=== PATIENT | male | born 1950 | race Caucasian/White ===

== ENCOUNTER → 2019-08-18 | Outpatient (CLI) | payer MEDICARE ==
[2019-08-18 13:56] LABS: Basophils # (A) 0.1 k/uL (0-0.2); Basophils % (A) 1 %; Eosinophils # (A) 0.1 k/uL (0-0.7); Eosinophils % (A) 1 %; HCT 52.6 % (39.0-53.0); HGB 17.5 gm/dL (13.0-17.5); Lymphocytes # (A) 1.9 k/uL (1.0-4.8); Lymphocytes % (A) 17 %; MCH 32.4 pg (25.0-35.0); MCHC 33.2 g/dL (31.0-37.0); MCV 97.5 fL (80.0-100.0); Mean Platelet Volume 7.4; Monocytes # (A) 0.7 k/uL (0-1.0); Monocytes % (A) 6 %; Neutrophils % (A) 73 %; Platelet Count 259 k/uL (150-450); RDW 12.8 % (11.5-15.5); WBC 11.1 k/uL (3.8-10.6)
--- NOTE | 2019-08-18 14:48 | XR ---
EXAMINATION TYPE: XR KUB DATE OF EXAM: 08/18/2019 COMPARISON: NONE HISTORY: Pain TECHNIQUE: Single supine KUB image of the abdomen is obtained FINDINGS: Small bowel demonstrates no evidence for dilatation or air fluid levels. Gas and fecal material is seen in non-distended colon. No convincing evidence for pneumoperitoneum. No unusual calcifications. The lung bases are clear. The osseous structures are intact. IMPRESSION: 1. Overall nonobstructive bowel gas pattern.
[2019-08-18 20:58] LABS: African American GFR (CKD) 102.1 (60.0-200.0); Albumin 3.9 g/dL (3.80-4.90); Albumin/Globulin Ratio 1.77 (1.60-3.17); Anion Gap 10.5 mmol/L (4.00-12.00); BUN/Creat Ratio 21.11 Ratio (12.00-20.00); Calcium 9.2 mg/dL (8.7-10.3); Carbon Dioxide 23.5 mmol/L (21.6-31.8); Globulin 2.2 g/dL (1.6-3.3); Non-African American GFR(CKD) 88.1 (60.0-200.0); Potassium 4.4 mmol/L (3.5-5.5); Total Bilirubin 0.5 mg/dL (0.2-1.2); Total Protein 6.1 g/dL (6.2-8.2)
[2019-08-18 21:53] LABS: Hemoglobin A1C 11.9 % (4.0-6.0)
== END | disposition home or self-care (01) ==
LOC: LABWHC1 12:49
PROVIDERS: ATTEND Internal Medicine
DX: R10.84 Generalized abdominal pain (principal); R53.83 Other fatigue; I10 Essential (primary) hypertension; N40.0 Benign prostatic hyperplasia without lower urinary tract symptoms; E11.9 Type 2 diabetes mellitus without complications; E78.5 Hyperlipidemia, unspecified
CPT/HCPCS: 36415; 74018; 80053; 82150; 82607; 83036; 83880; 84153; 85025

== ENCOUNTER → 2019-09-13 | Outpatient (CLI) | payer MEDICARE ==
[2019-09-13 07:40] LABS: African American GFR (CKD) >90 (>60 ml/min/1.73 sqM); Blood Urea Nitrogen 22 mg/dL (9-20); Non-African American GFR(CKD) >90 (>60 ml/min/1.73 sqM)
--- NOTE | 2019-09-13 09:44 | CT ---
EXAMINATION TYPE: CT abdomen pelvis w con DATE OF EXAM: 09/13/2019 COMPARISON: NONE HISTORY: 69-year-old male C6 1, Prostate Cancer TECHNIQUE: Contiguous axial scanning of the abdomen and pelvis following administration of 100 ml Iso mary lou 300 IV contrast. Delayed images through the kidneys and coronal/sagittal reconstructions perform ed. CT DLP: 1400 mGycm Automated exposure control for dose reduction was used. FINDINGS: Heart normal size without pericardial effusion. Mild aneurysm lower descending thoracic aorta at 3.4 cm. Aneurysm at the level of the diaphragmatic hiatus at 3.8 cm. Segmental fusiform aneurysms of the infrarenal abdominal aorta measuring up to 3.8 cm superiorly and 3.4 cm distally. Aneurysm right and left common iliac arteries measuring up to 2.1 cm. Some dependent atelectasis in the lower lungs. No pleural effusion. Volume loss at the right base secondary to right hemidiaphragmatic elevation. This is likely secondar y to mass effect from a very large right renal cyst measuring up to 14.9 cm. Right retrocrural lymph node enlarged at 1.3 cm. Diffuse retroperitoneal lymphadenopathy measuring up to 4.0 x 1.9 cm in the aortocaval region. Arron mass measuring 5.0 x 2.9 cm left periaortic. 1.7 cm right common iliac chain. 1.6 cm right external iliac chain. 1.8 cm left common iliac chain. 3.7 x 2.7 cm left external iliac chain. 1.7 cm right obturator chain lymph node. No focal liver lesion seen. Portal venous system appears patent. No biliary ductal dilatation. Puncta te pancreatic head calcifications suggesting sequela of prior pancreatitis. Clinically correlate. Gallbladder, right adrenal gland, and spleen appear within normal limits. Left renal hypodensities measuring up to 2.0 cm suggestive of benign cysts. Some are too small for ac curate CT characterization. Punctate 2 mm nonobstructive left renal calculus. Large 14.9 cm right renal cyst mentioned above causing mass effect on to the liver and volume loss at the right base. Additional smaller cortical lesions probably representing cysts. An 8 mm lesion post eriorly mid to lower pole right kidney too small for accurate CT characterization. This can be reasse ssed at follow-up given intermediate attenuation. No dilated small bowel, free fluid, or free air. Moderate stool burden. Normal appendix. Sigmoid diverticulosis. No pericolonic inflammatory change. Bladder is urine distended. Prostate gland measures 6.2 cm wide. There is irregular lobulated impress ion on the posterior bladder base. No abnormal fluid collection the pelvis. BONES: Mild degenerative change of the hips and left SI joint. Advanced degenerative disc disease L5-S1 and facet arthropathy lower lumbar spine. Sclerotic focus left inferior pelvic ramus. No osseous destructive process. IMPRESSION: 1. PROSTATOMEGALY AT 6.2 CM WIDE WITH HETEROGENEOUS ENHANCEMENT AND IRREGULAR LOBULATED IMPRESSION ON TO THE POSTERIOR BLADDER BASE IN KEEPING WITH PATIENT'S HISTORY OF PROSTATE CANCER. 2. METASTATIC DISEASE WITH DIFFUSE RETROPERITONEAL, BILATERAL ILIAC CHAIN, AND RIGHT OBTURATOR CHAIN LYMPHADENOPATHY. LARGEST ARRON MASS ALONG THE LEFT PERIAORTIC REGION MEASURES UP TO 5.0 X 2.9 CM. CAM NG THE LEFT EXTERNAL ILIAC CHAIN MEASURES 3.7 X 2.7 CM. RIGHT RETROCRURAL MEASURES 1.3 CM. 3. OSSEOUS METASTATIC DISEASE WITH A SCLEROTIC FOCUS OF THE LEFT INFERIOR PUBIC RAMUS. 4. LARGE 14.9 CM RIGHT RENAL CYST CAUSES MASS EFFECT ON TO THE LIVER AND VOLUME LOSS AT THE RIGHT BAS E. 5. A TOO SMALL TO CHARACTERIZE 8 MM LESION POSTERIOR RIGHT KIDNEY SHOULD BE REASSESSED AT FOLLOW-UP T O EXCLUDE AN EARLY SMALL SOLID MASS VERSUS COMPLICATED CYST. 6. AORTIC ANEURYSMS AND COMMON ILIAC ARTERY ANEURYSMS (AORTA MEASURING UP TO 3.8 CM AND COMMON ILIAC ARTERIES MEASURING UP TO 2.1 CM). 7. SIGMOID DIVERTICULOSIS.
--- NOTE | 2019-09-13 16:35 | XR ---
EXAMINATION TYPE: XR chest 2V DATE OF EXAM: 09/13/2019 COMPARISON: NONE HISTORY: Shortness of breath with activity. History of smoking and prostate cancer. TECHNIQUE: Frontal and lateral views of the chest are obtained. FINDINGS: There is no focal air space opacity, pleural effusion, or pneumothorax seen. The cardiac silhouette size is within normal limits. The osseous structures are intact. Calcific tendinitis of the right shoulder. IMPRESSION: No acute cardiopulmonary process.
--- NOTE | 2019-09-13 17:48 | NM ---
EXAMINATION TYPE: NM bone scan whole body DATE OF EXAM: 09/13/2019 COMPARISON: CT abdomen pelvis 09/13/2019 HISTORY: Prostate cancer Delayed whole-body scanning was performed following the injection of 24 mCi Tc 99m MDP. Images acqui red 4 hours post injection. FINDINGS: Abnormal focus of activity over the posterolateral left rib 7. Focus of abnormal activity over the le ft inferior pelvic ramus. Symmetric degenerative uptake of the bilateral shoulders. Periodontal disease. Focus of uptake overly ing the right hip joint is likely degenerative as there is no CT correlate. IMPRESSION: Findings likely represent metastatic prostate cancer of the left inferior pubic ramus and left business director olateral rib 7.
== END | disposition home or self-care (01) ==
LOC: RADCTMAIN 06:49
PROVIDERS: ATTEND Urology
DX: N40.0 Benign prostatic hyperplasia without lower urinary tract symptoms (principal); C61 Malignant neoplasm of prostate; Z85.46 Personal history of malignant neoplasm of prostate; R59.0 Localized enlarged lymph nodes; C79.51 Secondary malignant neoplasm of bone; N28.1 Cyst of kidney, acquired; I72.3 Aneurysm of iliac artery; K57.30 Diverticulosis of large intestine without perforation or abscess without bleeding; R16.0 Hepatomegaly, not elsewhere classified
CPT/HCPCS: 82565; 84520; 71046; 74177; 36415; 78306; A9503; Q9967

== ENCOUNTER 2020-01-10 07:04 | Day surgery (SDC) | payer MEDICARE, BC ==
[~2020-01-10 07:04] MED LIST: LACTATED RINGERS 1,000 ML IV SCH; LIDOCAINE 1% (10MG/ML) FOR IV START INTRADERMA PRN
[2020-01-10 07:26] VITALS: RESP 18; TEMP 97.7
[2020-01-10] MEDS ORDERED: LACTATED RINGERS 1,000 ML IV ONE (07:40)
[2020-01-10 07:41] LABS: Glucose,Whole Blood 117 mg/dL (75-99)
[2020-01-10] MEDS ORDERED: PROPOFOL 10 MG/ML 20 ML VIAL IV ONE (07:41)
--- NOTE | 2020-01-10 08:19 | P.PCN ---
Date of Procedure: 01/10/20 Description of Procedure: BRIEF HISTORY: Patient is a 69-year-old male presenting for outpatient colonoscopy for screening for malignant neoplasm of the colon. No prior colonoscopies reported. No change in bowel habits. No blood per rectum. The patient does report a family history of colon cancer in his mother. PROCEDURE PERFORMED: Colonoscopy with polypectomy. PREOPERATIVE DIAGNOSIS: Screening for malignant neoplasm of the colon, no prior colonoscopy, the patient does report family history of colon cancer in his mother. ESTIMATED BLOOD LOSS: Minimal. IV sedation per Anesthesia. PROCEDURE: After informed consent was obtained, the patient, was brought into the endoscopy unit. IV sedation was administered by Anesthesia under continuous monitoring. Digital rectal examination was normal. Initially the Olympus CF-190 flexible video colonoscope was then inserted in the rectum, gradually advanced into the cecum without any difficulty. Careful examination was performed as the scope was gradually being withdrawn. Ileocecal valve and the appendiceal orifice were visualized and appeared normal. Prep was excellent. Mucosa of the cecum, ascending colon, transverse colon, descending colon, sigmoid colon, and rectum appeared normal. A few scattered diverticula noted in the sigmoid colon. The patient had a flat 4 mm ascending colon polyp removed with cold forcep polypectomy. Sessile 4 mm transverse colon polyp removed with cold snare polypectomy. 2 sigmoid colon polyps measuring 7 and 6 mm in size removed with cold snare polypectomy. Retroflexion was performed in the rectum and no lesions were seen. The patient tolerated the procedure well. IMPRESSION: 3 polyps removed with cold snare polypectomy one from the transverse colon and 2 from the sigmoid colon. Flat ascending colon polyp removed with cold forcep polypectomy. Mild sigmoid diverticulosis. RECOMMENDATIONS: Findings of this examination were discussed with the patient and his family. Okay to resume diet. Okay to resume medications. Await pathology from polypectomy. Recommend repeat colonoscopy in 5 years for history of colon polyps and family history of colon cancer, pending pathology from polypectomy.
[2020-01-10 08:39] VITALS: BP 128/82; PULSE 62
== END 2020-01-10 09:17 | disposition home or self-care (01) ==
LOC: ORWHC2ENDO 07:04
PROVIDERS: ATTEND Internal Medicine
DX: Z12.11 Encounter for screening for malignant neoplasm of colon (principal); D12.3 Benign neoplasm of transverse colon; K63.5 Polyp of colon; K57.30 Diverticulosis of large intestine without perforation or abscess without bleeding; E11.9 Type 2 diabetes mellitus without complications; I10 Essential (primary) hypertension; E78.5 Hyperlipidemia, unspecified; G47.33 Obstructive sleep apnea (adult) (pediatric); C61 Malignant neoplasm of prostate; F17.210 Nicotine dependence, cigarettes, uncomplicated; Z80.0 Family history of malignant neoplasm of digestive organs; Z79.4 Long term (current) use of insulin; Z79.899 Other long term (current) drug therapy; Z98.890 Other specified postprocedural states
CPT/HCPCS: 88305; 45380; 45385; J2704

== ENCOUNTER → 2020-12-27 | Outpatient (CLI) | payer MEDICARE, BC ==
--- NOTE | 2020-12-28 08:08 | XR ---
EXAM TYPE: LUMBAR SPINE X RAY SERIES COMPARISON: NONE HISTORY: Weakness pain TECHNIQUE: 4 views are submitted. FINDINGS: Alignment is anatomic. The pedicles are intact. The transverse processes are intact. There is no s pondylolysis or spondylolisthesis. Mild diffuse osteopenia. Multilevel degenerative disc disease and facet arthropathy most marked at L5-S1. Vascular calcifications. IMPRESSION: 1. Multilevel degenerative disc disease and facet arthropathy most marked at L5-S1..
== END | disposition home or self-care (01) ==
LOC: RADXRMAIN 16:51
PROVIDERS: ATTEND Urology
DX: M51.37 Other intervertebral disc degeneration, lumbosacral region (principal); M46.97 Unspecified inflammatory spondylopathy, lumbosacral region
CPT/HCPCS: 72110

== ENCOUNTER 2022-01-22 10:38 | Inpatient (IN) | payer MEDICARE, BC ==
[2022-01-22] MEDS ORDERED: HYDROcodone/APAP 5-325MG 1 EACH TAB PO STA (12:30)
--- NOTE | 2022-01-22 13:00 | ED ---
General Adult HPI - General Chief complaint: Extremity Injury, Lower Stated complaint: rt foot pain Time Seen by Provider: 01/22/22 12:17 Source: patient, RN notes reviewed Mode of arrival: wheelchair Limitations: no limitations, physical limitation - History of Present Illness Initial comments: 71-year-old male presents emergency Department chief complaint of right foot fifth digit to pain. Patient states that he stubbed it of proximal one month ago. Patient is known diabetic with peripheral vascular disease. Patient is concerned about possible gangrene. Patient states that there is discomfort, swelling of the digit. Patient denies any drainage denies any other associated complaints. - Related Data Home Medications Medication Instructions Recorded Confirmed Atorvastatin [Lipitor] 10 mg PO QAM 01/06/20 01/06/20 Calcium Carbonate [Calcium] 600 mg PO DAILY 01/06/20 01/06/20 Enzalutamide [Xtandi] 160 mg PO DAILY 01/06/20 01/06/20 Fiber Powder 1 dose PO DAILY 01/06/20 01/06/20 Glimepiride [Amaryl] 1 mg PO BID 01/06/20 01/06/20 Glucos Sul 2Kcl/MSM/Chond/C/Mn 2 tab PO DAILY 01/06/20 01/06/20 [Glucosamine Chondroitin Cap] Insulin Detemir (Levemir) [Levemir] 20 unit SQ 1800 01/06/20 01/06/20 Multivitamins, Thera [Multivitamin 1 tab PO DAILY 01/06/20 01/06/20 (formulary)] [place]-3 Fatty Acids/Fish Oil [Fish 2 cap PO DAILY 01/06/20 01/06/20 Oil 1,000 mg Softgel] Turmeric Root Extract [Turmeric] 1 tab PO DAILY 01/06/20 01/06/20 lisinopriL [Zestril] 2.5 mg PO QAM 01/06/20 01/06/20 Allergies Allergy/AdvReac Type Severity Reaction Status Date / Time No Known Allergies Allergy Verified 01/22/22 10:56 Review of Systems ROS Statement: Those systems with pertinent positive or pertinent negative responses have been documented in the HPI. ROS Other: All systems not noted in ROS Statement are negative. Past Medical History Past Medical History: Diabetes Mellitus, Hyperlipidemia, Hypertension, Osteoarthritis (OA), Sleep Apnea/CPAP/BIPAP Additional Past Medical History / Comment(s): PROSTATE CANCER. CONCUSSION WITH WHEN HE WAS 9 YR HAD TWO HOLES DRILLED. History of Any Multi-Drug Resistant Organisms: None Reported Additional Past Surgical History / Comment(s): MINOR LACERATION Past Anesthesia/Blood Transfusion Reactions: Unable to Obtain Past Psychological History: No Psychological Hx Reported Smoking Status: Current every day smoker Past Alcohol Use History: None Reported Past Drug Use History: None Reported General Exam Limitations: no limitations General appearance: alert, in no apparent distress Head exam: Present: atraumatic, normocephalic, normal inspection Eye exam: Present: normal appearance, PERRL, EOMI. Absent: scleral icterus, conjunctival injection, periorbital swelling ENT exam: Present: mucous membranes moist Respiratory exam: Present: normal lung sounds bilaterally. Absent: respiratory distress, wheezes, rales, rhonchi, stridor Cardiovascular Exam: Present: regular rate, normal rhythm, normal heart sounds. Absent: systolic murmur, diastolic murmur, rubs, gallop, clicks Extremities exam: Present: other Neurological exam: Present: alert Skin exam: Present: warm (Right foot fifth digit there is some swelling of the distal portion under the nail, mild erythema tenderness with palpation neurovascular intact), dry, intact, normal color. Absent: rash Course Vital Signs 01/22/22 10:53 Temperature 97.7 F Pulse Rate 83 Respiratory 18 Rate Blood Pressure 113/73 O2 Sat by Pulse 94 L Oximetry Medical Decision Making - Medical Decision Making 71-year-old male presented from for toe pain. Patient has evidence of osteomyelitis. Patient was started on doing a bradycardia. Patient be admitted with consult to vascular surgery. Disposition Clinical Impression: Osteomyelitis of toe of right foot Disposition: ADMITTED IP TO THIS HOSP Condition: Fair Referrals: Izabella Matos MD [Primary Care Provider] - 1-2 days Time of Disposition: 13:48
--- NOTE | 2022-01-22 13:06 | XR ---
EXAMINATION TYPE: XR toes RT DATE OF EXAM: 01/22/2022 COMPARISON: NONE HISTORY: Focal pain and swelling fifth toe TECHNIQUE: 3 views right fifth toe. FINDINGS: Focal moderate soft tissue swelling fifth toe with irregular bony destruction of the distal 10-20% aspect of the fifth distal phalanx. Joint spaces are maintained. IMPRESSION: Radiographic findings suggest acute osteomyelitis distal fifth toe.
[2022-01-22] MEDS ORDERED: VANCOMYCIN IV PER PHARMACY 1 EACH MISC MISCELLANE PRN (13:20)
[2022-01-22] MEDS ORDERED: MORPHINE SULFATE 4 MG/ML SYRINGE IVP STA (13:46)
[2022-01-22] MEDS ORDERED: NICOTINE 21MG/24HR PATCH TRANSDERM STA (13:46)
[2022-01-22] MEDS ORDERED: ONDANSETRON 4 MG/2 ML VIAL IVP STA (13:46)
[2022-01-22] MEDS ORDERED: HYDROmorphone 0.5 MG/0.5 ML SYRINGE IVP PRN (13:48)
[2022-01-22] MEDS ORDERED: ONDANSETRON 4 MG/2 ML VIAL IVP PRN (13:48)
[2022-01-22] MEDS ORDERED: NALOXONE 0.4 MG/ML 1 ML VIAL IV PRN (13:48)
[2022-01-22] MEDS ORDERED: PIPERACILLIN-TAZOBACTAM 3.375 GM in SODIUM CHLORIDE 0.9% 100 ML IVPB ONE (14:00)
[2022-01-22 14:11] LABS: Basophils # (A) 0.1 k/uL (0-0.2); Basophils % (A) 1 %; Eosinophils # (A) 0.2 k/uL (0-0.7); Eosinophils % (A) 2 %; HCT 47.6 % (39.0-53.0); HGB 17.1 gm/dL (13.0-17.5); Lymphocytes # (A) 2.7 k/uL (1.0-4.8); Lymphocytes % (A) 25 %; MCHC 35.8 g/dL (31.0-37.0); MCV 92.2 fL (80.0-100.0); Monocytes # (A) 0.7 k/uL (0-1.0); Monocytes % (A) 6 %; Neutrophils # (A) 7.1 k/uL (1.3-7.7); Neutrophils % (A) 64 %; Platelet Count 180 k/uL (150-450); RBC 5.17 m/uL (4.30-5.90); RDW 12.5 % (11.5-15.5)
[2022-01-22 14:48] LABS: ALT 21 U/L (4-49); AST 30 U/L (17-59); African American GFR (CKD) >90 (>60 ml/min/1.73 sqM); Albumin 4.2 g/dL (3.5-5.0); Alkaline Phosphatase 66 U/L (38-126); Anion Gap 7 mmol/L; Blood Urea Nitrogen 25 mg/dL (9-20); C Reactive Protein <0.5 mg/dL (<1.0); Calcium 9.7 mg/dL (8.4-10.2); Carbon Dioxide 25 mmol/L (22-30); Chloride 108 mmol/L (98-107); Glucose 116 mg/dL (74-99); Non-African American GFR(CKD) >90 (>60 ml/min/1.73 sqM); Sodium 140 mmol/L (137-145); Total Bilirubin 0.5 mg/dL (0.2-1.3); Total Protein 6.7 g/dL (6.3-8.2)
[2022-01-22 14:51] LABS: Potassium 4.5 mmol/L (3.5-5.1)
[2022-01-22] MEDS ORDERED: VANCOMYCIN 2,000 MG in SODIUM CHLORIDE 0.9% 500 ML 500 ML IVPB ONE (15:00)
[2022-01-22 18:45] LABS: Glucose,Whole Blood 86 mg/dL (70-110)
[2022-01-22] MEDS ORDERED: DEXTROSE 50% SYRINGE 50 ML IVP PRN ×2 (19:10)
--- NOTE | 2022-01-22 19:13 | P.HPIM ---
History of Present Illness This is a pleasant 71 years old male with past medical history of diabetes mellitus, hypertension, hyperlipidemia, osteoarthritis, sleep apnea Presents because of pain and swelling of the right fifth toe of 4 day duration, he states the pain is significant and severe. He denies any other symptoms, no chest pain or dyspnea or abdominal pain or vomiting or diarrhea. No urinary complaints. No fever. He smokes 3 packs per day and he was counseled to quit and he agrees and he agrees to the nicotine patch. He denies alcohol, he denies current illicit drugs he states that he used to abuse drugs but that was many years before. Vitas looks stable He has mild leukocytosis of 11,000, rest of CBC, BMP and liver enzymes are unremarkable Right foot x-ray showing radiographic findings suggestive of acute osteomyelitis of the distal fifth toe Review of Systems Review of systems CONSTITUTIONAL: No fever, no malaise, no fatigue. HEENT: No recent visual problems or hearing problems. Denied any sore throat. CARDIOVASCULAR: No orthopnea, PND, no palpitations, no syncope. PULMONARY: No shortness of breath, no cough, no hemoptysis. GASTROINTESTINAL: No diarrhea, no nausea, no vomiting, no abdominal pain. Normoactive bowel sounds. NEUROLOGICAL: No headaches, no weakness, no numbness. HEMATOLOGICAL: Denies any bleeding or petechiae. GENITOURINARY: Denies any burning micturition, frequency, or urgency. -MUSCULOSKELETAL/RHEUMATOLOGICAL: Denies any joint pain, swelling, or any muscle pain. Except what is mentioned above ENDOCRINE: Denies any polyuria or polydipsia. Past Medical History Past Medical History: Diabetes Mellitus, Hyperlipidemia, Hypertension, Osteoarthritis (OA), Sleep Apnea/CPAP/BIPAP Additional Past Medical History / Comment(s): PROSTATE CANCER. CONCUSSION WITH WHEN HE WAS 9 YR HAD TWO HOLES DRILLED. History of Any Multi-Drug Resistant Organisms: None Reported Additional Past Surgical History / Comment(s): MINOR LACERATION Past Anesthesia/Blood Transfusion Reactions: Unable to Obtain Past Psychological History: No Psychological Hx Reported Smoking Status: Current every day smoker Past Alcohol Use History: None Reported Past Drug Use History: None Reported Medications and Allergies Home Medications Medication Instructions Recorded Confirmed Type Calcium Carbonate [Calcium] 600 mg PO DAILY@0600 01/06/20 01/22/22 History Enzalutamide [Xtandi] 160 mg PO DAILY@0600 01/06/20 01/22/22 History Glimepiride [Amaryl] 1 mg PO DAILY@0600 01/06/20 01/22/22 History Glucos Sul 2Kcl/MSM/Chond/C/Mn 2 tab PO DAILY@0600 01/06/20 01/22/22 History [Glucosamine Chondroitin Cap] Multivitamins, Thera [Multivitamin 1 tab PO DAILY@0600 01/06/20 01/22/22 History (formulary)] [place]-3 Fatty Acids/Fish Oil [Fish 2 cap PO DAILY@0600 01/06/20 01/22/22 History Oil 1,000 mg Softgel] Turmeric Root Extract [Turmeric] 500 mg PO DAILY@0600 01/06/20 01/22/22 History lisinopriL [Zestril] 2.5 mg PO DAILY@0600 01/06/20 01/22/22 History Atorvastatin Calcium [Lipitor] 40 mg PO DAILY@0600 01/22/22 01/22/22 History Insulin Glargine,Hum.rec.anlog 40 units SQ DAILY@1800 01/22/22 01/22/22 History [Lantus Solostar Pen] Allergies Allergy/AdvReac Type Severity Reaction Status Date / Time No Known Allergies Allergy Verified 01/22/22 14:30 Physical Exam Vitals: Vital Signs Temp Pulse Resp BP Pulse Ox 01/22/22 10:53 97.7 F 83 18 113/73 94 L Intake and Output 01/22/22 01/22/22 01/22/22 06:59 14:59 22:59 Other: Weight 99.79 kg GENERAL: The patient is alert and oriented x3, not in any acute distress. Well developed, well nourished. HEENT: Pupils are round and equally reacting to light. EOMI. No scleral icterus. No conjunctival pallor. Normocephalic, atraumatic. No pharyngeal erythema. No thyromegaly. CARDIOVASCULAR: S1 and S2 present. No murmurs, rubs, or gallops. PULMONARY: Chest is clear to auscultation, no wheezing or crackles. ABDOMEN: Soft, nontender, nondistended, normoactive bowel sounds. No palpable organomegaly. MUSCULOSKELETAL: No joint swelling or deformity. -EXTREMITIES: No cyanosis, clubbing, or pedal edema. Right fifth toe is swollen and tender and draped. NEUROLOGICAL: Gross neurological examination did not reveal any focal deficits. SKIN: No rashes. no petechiae Results CBC & Chem 7: 01/22/22 13:33 01/22/22 13:33 Labs: Abnormal Lab Results - Last 24 Hours (Table) 01/22/22 01/22/22 Range/Units 13:33 13:33 WBC 11.0 H (3.8-10.6) k/uL Chloride 108 H (98-107) mmol/L BUN 25 H (9-20) mg/dL Glucose 116 H (74-99) mg/dL Assessment and Plan Assessment: Right fifth toe osteomyelitis Nicotine dependence Hypertension Diabetes mellitus Hyperlipidemia Obesity with BMI of 31.6 History of osteoarthritis History of sleep apnea Plan: Vascular surgery consult Continue with antibiotic Check hemoglobin A1c Continue with insulin sliding scale Infectious disease consult Labs and medication were reviewed.. Continue same treatment. Continue with symptomatic treatment. Resume home medication. Monitor lytes and vitals. DVT and GI prophylaxis. Further recommendations as per clinical course of the patient DVT prophylaxis: Subcutaneous heparin GI Prophylaxis: Pepcid PT/OT: Pending Prognosis is guarded
[2022-01-22] MEDS ORDERED: PIPERACILLIN-TAZOBACTAM 3.375 GM in SODIUM CHLORIDE 0.9% 100 ML IVPB SCH (20:00)
[2022-01-22 20:47] LABS: Glucose,Whole Blood 155 mg/dL (70-110)
[2022-01-22] MEDS ORDERED: HEPARIN SODIUM,PORCINE/PF 5,000 UNIT/0.5 ML SYRINGE SQ SCH (21:00)
[2022-01-22] MEDS: FAMOTIDINE 20 MG/2 ML VIAL IV SCH (21:03)
[2022-01-22] MEDS: MORPHINE SULFATE 4 MG/ML SYRINGE IV PRN (21:03)
[2022-01-22] MEDS: CEFEPIME 2 GM in SODIUM CHLORIDE 0.9% 100 ML IVPB SCH (21:03)
[2022-01-22] MEDS: INSULIN ASPART (NovoLOG) 100 UNIT/ML VIAL SQ SCH (21:04)
[2022-01-23] MEDS: VANCOMYCIN 1,750 MG in SODIUM CHLORIDE 0.9% 500 ML 500 ML IVPB SCH ×2 (01:28→15:28)
[2022-01-23 06:05] LABS: Glucose,Whole Blood 130 mg/dL (70-110)
[2022-01-23] MEDS: INSULIN ASPART (NovoLOG) 100 UNIT/ML VIAL SQ SCH ×4 (06:06→21:27)
[2022-01-23] MEDS: CALCIUM CARBONATE 500 MG CHEWABLE PO SCH (06:10)
[2022-01-23] MEDS: GLIMEPIRIDE 1 MG TAB PO SCH (06:10)
[2022-01-23] MEDS: MORPHINE SULFATE 4 MG/ML SYRINGE IV PRN ×2 (06:10→15:36)
[2022-01-23] MEDS: ATORVASTATIN 40 MG TAB PO SCH (06:10)
[2022-01-23 06:56] LABS: Basophils # (A) 0.1 k/uL (0-0.2); Basophils % (A) 1 %; Eosinophils # (A) 0.2 k/uL (0-0.7); Eosinophils % (A) 2 %; HCT 43.3 % (39.0-53.0); Lymphocytes # (A) 2.5 k/uL (1.0-4.8); Lymphocytes % (A) 23 %; MCH 32.6 pg (25.0-35.0); MCHC 34.7 g/dL (31.0-37.0); MCV 93.9 fL (80.0-100.0); Mean Platelet Volume 7.9; Monocytes # (A) 0.8 k/uL (0-1.0); Monocytes % (A) 7 %; Neutrophils % (A) 65 %; Platelet Count 154 k/uL (150-450); RBC 4.61 m/uL (4.30-5.90); RDW 12.7 % (11.5-15.5); WBC 10.9 k/uL (3.8-10.6)
[2022-01-23 07:16] LABS: African American GFR (CKD) >90 (>60 ml/min/1.73 sqM); Anion Gap 4 mmol/L; Blood Urea Nitrogen 20 mg/dL (9-20); Calcium 8.1 mg/dL (8.4-10.2); Carbon Dioxide 25 mmol/L (22-30); Chloride 106 mmol/L (98-107); Glucose 119 mg/dL (74-99); Non-African American GFR(CKD) >90 (>60 ml/min/1.73 sqM); Potassium 4.2 mmol/L (3.5-5.1); Sodium 135 mmol/L (137-145)
--- NOTE | 2022-01-23 08:07 | P.GSCN ---
History of Present Illness History of present illness: 71-year-old diabetic male patient was seen in the office with history of right foot callus involving the right foot fifth toe patient had a CT of the abdomen which showed a SFA and infrapopliteal disease and also patient has a infrarenal abdominal aortic aneurysm less than 4 cm the right foot fifth toe has a callus on the plantar aspect nontender Neck is supple no bruit appreciated Chest is clear first and second sound normal some crackles at the lung bases Abdomen soft nontender Vascular femorals 1+ bilateral [place] has a right foot fifth toe callus Plan is we will use Santyl cream also patient has some peripheral vascular disease involving the right and left leg with the infrarenal abdominal aortic aneurysm advised to use Santyl daily patient wants to go home I will discuss with the internal medicine if he goes home for follow-up office continue with Santyl cream Past Medical History Past Medical History: Diabetes Mellitus, Hyperlipidemia, Hypertension, Osteoarthritis (OA), Sleep Apnea/CPAP/BIPAP Additional Past Medical History / Comment(s): PROSTATE CANCER. CONCUSSION WITH WHEN HE WAS 9 YR HAD TWO HOLES DRILLED. History of Any Multi-Drug Resistant Organisms: None Reported Additional Past Surgical History / Comment(s): MINOR LACERATION Past Anesthesia/Blood Transfusion Reactions: Unable to Obtain Past Psychological History: No Psychological Hx Reported Smoking Status: Current every day smoker Past Alcohol Use History: None Reported Past Drug Use History: None Reported Medications and Allergies Home Medications Medication Instructions Recorded Confirmed Type Calcium Carbonate [Calcium] 600 mg PO DAILY@0600 01/06/20 01/22/22 History Enzalutamide [Xtandi] 160 mg PO DAILY@0600 01/06/20 01/22/22 History Glimepiride [Amaryl] 1 mg PO DAILY@0600 01/06/20 01/22/22 History Glucos Sul 2Kcl/MSM/Chond/C/Mn 2 tab PO DAILY@0600 01/06/20 01/22/22 History [Glucosamine Chondroitin Cap] Multivitamins, Thera [Multivitamin 1 tab PO DAILY@0600 01/06/20 01/22/22 History (formulary)] [place]-3 Fatty Acids/Fish Oil [Fish 2 cap PO DAILY@0600 01/06/20 01/22/22 History Oil 1,000 mg Softgel] Turmeric Root Extract [Turmeric] 500 mg PO DAILY@0600 01/06/20 01/22/22 History lisinopriL [Zestril] 2.5 mg PO DAILY@0600 01/06/20 01/22/22 History Atorvastatin Calcium [Lipitor] 40 mg PO DAILY@0600 01/22/22 01/22/22 History Insulin Glargine,Hum.rec.anlog 40 units SQ DAILY@1800 01/22/22 01/22/22 History [Lantus Solostar Pen] Allergies Allergy/AdvReac Type Severity Reaction Status Date / Time No Known Allergies Allergy Verified 01/22/22 14:30 Surgical - Exam Vital Signs Temp Pulse Resp BP Pulse Ox 97.7 F 83 18 113/73 94 L 01/22/22 10:53 01/22/22 10:53 01/22/22 10:53 01/22/22 10:53 01/22/22 10:53 Results - Labs 01/23/22 06:42 01/23/22 06:42 Abnormal Lab Results - Last 24 Hours (Table) 01/22/22 01/22/22 01/22/22 Range/Units 13:33 13:33 20:45 WBC 11.0 H (3.8-10.6) k/uL Sodium (137-145) mmol/L Chloride 108 H (98-107) mmol/L BUN 25 H (9-20) mg/dL Glucose 116 H (74-99) mg/dL POC Glucose (mg/dL) 155 H (70-110) mg/dL Calcium (8.4-10.2) mg/dL 01/23/22 01/23/22 01/23/22 Range/Units 06:03 06:42 06:42 WBC 10.9 H (3.8-10.6) k/uL Sodium 135 L (137-145) mmol/L Chloride (98-107) mmol/L BUN (9-20) mg/dL Glucose 119 H (74-99) mg/dL POC Glucose (mg/dL) 130 H (70-110) mg/dL Calcium 8.1 L (8.4-10.2) mg/dL Diabetes panel 01/22/22 01/23/22 Range/Units 13:33 06:42 Sodium 140 135 L (137-145) mmol/L Potassium 4.5 4.2 (3.5-5.1) mmol/L Chloride 108 H 106 (98-107) mmol/L Carbon Dioxide 25 25 (22-30) mmol/L BUN 25 H 20 (9-20) mg/dL Creatinine 0.69 0.77 (0.66-1.25) mg/dL Glucose 116 H 119 H (74-99) mg/dL Calcium 9.7 8.1 L (8.4-10.2) mg/dL AST 30 (17-59) U/L ALT 21 (4-49) U/L Alkaline Phosphatase 66 (38-126) U/L Total Protein 6.7 (6.3-8.2) g/dL Albumin 4.2 (3.5-5.0) g/dL Calcium panel 01/22/22 01/23/22 Range/Units 13:33 06:42 Calcium 9.7 8.1 L (8.4-10.2) mg/dL Albumin 4.2 (3.5-5.0) g/dL Pituitary panel 01/22/22 01/23/22 Range/Units 13:33 06:42 Sodium 140 135 L (137-145) mmol/L Potassium 4.5 4.2 (3.5-5.1) mmol/L Chloride 108 H 106 (98-107) mmol/L Carbon Dioxide 25 25 (22-30) mmol/L BUN 25 H 20 (9-20) mg/dL Creatinine 0.69 0.77 (0.66-1.25) mg/dL Glucose 116 H 119 H (74-99) mg/dL Calcium 9.7 8.1 L (8.4-10.2) mg/dL Adrenal panel 01/22/22 01/23/22 Range/Units 13:33 06:42 Sodium 140 135 L (137-145) mmol/L Potassium 4.5 4.2 (3.5-5.1) mmol/L Chloride 108 H 106 (98-107) mmol/L Carbon Dioxide 25 25 (22-30) mmol/L BUN 25 H 20 (9-20) mg/dL Creatinine 0.69 0.77 (0.66-1.25) mg/dL Glucose 116 H 119 H (74-99) mg/dL Calcium 9.7 8.1 L (8.4-10.2) mg/dL Total Bilirubin 0.5 (0.2-1.3) mg/dL AST 30 (17-59) U/L ALT 21 (4-49) U/L Alkaline Phosphatase 66 (38-126) U/L Total Protein 6.7 (6.3-8.2) g/dL Albumin 4.2 (3.5-5.0) g/dL
[2022-01-23] MEDS: HEPARIN SODIUM,PORCINE/PF 5,000 UNIT/0.5 ML SYRINGE SQ SCH ×2 (09:01→15:28)
[2022-01-23] MEDS: COLLAGENASE 250 UNIT/GM OINTMENT 30 GM TUBE TOPICAL SCH (09:01)
[2022-01-23] MEDS: FAMOTIDINE 20 MG/2 ML VIAL IV SCH ×2 (09:02→21:26)
[2022-01-23] MEDS: CEFEPIME 2 GM in SODIUM CHLORIDE 0.9% 100 ML IVPB SCH ×2 (09:02→21:26)
[2022-01-23] MEDS: INSULIN DETEMIR (LEVEMIR) 100 UNIT/ML SYR SQ SCH (09:03)
[2022-01-23] MEDS: NICOTINE 21MG/24HR PATCH TRANSDERM SCH (09:04)
[2022-01-23] MEDS ORDERED: IPRATROPIUM-ALBUTEROL 3 ML NEB INHALATION PRN (11:42)
--- NOTE | 2022-01-23 11:42 | P.CNPUL ---
History of Present Illness Consult date: 01/23/22 Requesting physician: Jarrell Queen Reason for consult: hypoxemia Chief complaint: Right fifth toe pain History of present illness: This is a pleasant 71-year-old male patient with a known history of hyperlipidemia, hypertension, diabetes mellitus, obstructive sleep apnea, chronic and ongoing tobacco dependence of 50 years at 2-3 packs per day. He has not been seen by a renewal specialist in the past. He's not been told he has COPD. He's not on any inhalers at home. If he states he does have occasional cough in the a.m. with white productive phlegm. He is quite dyspneic on minimal exertio n. He had presented here to the emergency room yesterday with complaints of pain in his right fifth toe. He had bumped it about 1 month ago and since that time it is done bruising and now looking black. There is significant redness around the toe. X-ray findings are suggestive of acute osteomyelitis in the distal fifth toe. He's been initiated on vancomycin and cefepime. He was found to be hypoxemic with O2 saturation 86% on room air. We are consulted for the same. Chest x-ray does show evidence of COPD but no acute pulmonary process. He is sitting up at the bedside. Awake and alert in no acute distress. Maintaining better oxygen saturations in the 90s on 2 L/m per nasal cannula. Afebrile. Hemodynamically stable. Review of Systems REVIEW OF SYSTEMS: CONSTITUTIONAL: Denies any recent significant weight loss or weight gain. EYES: Denies change in vision. EARS, NOSE, MOUTH, THROAT: Denies headaches, denies sore throat. CARDIOVASCULAR: Denies chest pain, palpitations or syncopal episodes. RESPIRATORY: Positive for dyspnea on exertion, cough, congestion no hemoptysis. GASTROINTESTINAL: Denies change in appetite, denies abdominal pain GENITOURINARY: Denies hematuria, denies infections. MUSKULOSKELETAL: Positive for pain and swelling redness of the right fifth toe.. INTEGUMENTARY: Denies rash, denies eczema. NEUROLOGICAL: Denies recent memory loss, no recent seizure activity. PSYCHIATRIC: Denies anxiety, denies depression. HEMATOLOGIC/LYMPHATIC: Denies anemia, denies enlarged lymph nodes. Past Medical History Past Medical History: Diabetes Mellitus, Hyperlipidemia, Hypertension, Osteoarthritis (OA), Sleep Apnea/CPAP/BIPAP Additional Past Medical History / Comment(s): PROSTATE CANCER. CONCUSSION WITH WHEN HE WAS 9 YR HAD TWO HOLES DRILLED. History of Any Multi-Drug Resistant Organisms: None Reported Additional Past Surgical History / Comment(s): MINOR LACERATION Past Anesthesia/Blood Transfusion Reactions: Unable to Obtain Past Psychological History: No Psychological Hx Reported Smoking Status: Current every day smoker Past Alcohol Use History: None Reported Past Drug Use History: None Reported Medications and Allergies Home Medications Medication Instructions Recorded Confirmed Type Calcium Carbonate [Calcium] 600 mg PO DAILY@0600 01/06/20 01/22/22 History Enzalutamide [Xtandi] 160 mg PO DAILY@0600 01/06/20 01/22/22 History Glimepiride [Amaryl] 1 mg PO DAILY@0600 01/06/20 01/22/22 History Glucos Sul 2Kcl/MSM/Chond/C/Mn 2 tab PO DAILY@0600 01/06/20 01/22/22 History [Glucosamine Chondroitin Cap] Multivitamins, Thera [Multivitamin 1 tab PO DAILY@0600 01/06/20 01/22/22 History (formulary)] [place]-3 Fatty Acids/Fish Oil [Fish 2 cap PO DAILY@0600 01/06/20 01/22/22 History Oil 1,000 mg Softgel] Turmeric Root Extract [Turmeric] 500 mg PO DAILY@0600 01/06/20 01/22/22 History lisinopriL [Zestril] 2.5 mg PO DAILY@0600 01/06/20 01/22/22 History Atorvastatin Calcium [Lipitor] 40 mg PO DAILY@0600 01/22/22 01/22/22 History Insulin Glargine,Hum.rec.anlog 40 units SQ DAILY@1800 01/22/22 01/22/22 History [Lantus Solostar Pen] Allergies Allergy/AdvReac Type Severity Reaction Status Date / Time No Known Allergies Allergy Verified 01/22/22 14:30 Physical Exam Vitals: Vital Signs Temp Pulse Pulse Resp BP BP BP 01/23/22 09:38 20 01/23/22 08:00 98.3 F 85 18 110/49 01/23/22 01:49 99.1 F 92 17 130/74 01/22/22 20:18 98.2 F 72 18 146/87 11/29/22 19:43 01/22/22 19:26 83 18 100/62 Pulse Ox 01/23/22 09:38 93 L 01/23/22 08:00 86 L 01/23/22 01:49 90 L 01/22/22 20:18 96 01/22/22 19:43 93 L 01/22/22 19:26 90 L Intake and Output 01/22/22 01/23/22 01/23/22 22:59 06:59 14:59 Other: # Voids 2 Weight 99.79 kg GENERAL EXAM: Alert, pleasant 71-year-old male patient, on 2 L nasal cannula, comfortable in no apparent distress. HEAD: Normocephalic. EYES: Normal reaction of pupils, equal size. NOSE: Clear with pink turbinates. THROAT: No erythema or exudates. NECK: No masses, no JVD. CHEST: No chest wall deformity. LUNGS: Equal air entry with no crackles, wheeze, rhonchi or dullness. Diminished. CVS: S1 and S2 normal with no audible murmur, regular rhythm. ABDOMEN: No hepatosplenomegaly, normal bowel sounds, no guarding or rigidity. SPINE: No scoliosis or deformity SKIN: No rashes CENTRAL NERVOUS SYSTEM: No focal deficits, tone is normal in all 4 extremities. EXTREMITIES: There is ecchymosis and erythema of the right fifth toe. No clubbing, no cyanosis. Peripheral pulses are intact. Results - Laboratory Findings CBC and BMP: 01/23/22 06:42 01/23/22 06:42 Abnormal lab findings: Abnormal Labs 01/22/22 01/22/22 01/22/22 13:33 13:33 13:33 WBC 11.0 H Sodium Chloride 108 H BUN 25 H Glucose 116 H POC Glucose (mg/dL) Hemoglobin A1c 7.4 H Calcium 01/22/22 01/23/22 01/23/22 20:45 06:03 06:42 WBC 10.9 H Sodium Chloride BUN Glucose POC Glucose (mg/dL) 155 H 130 H Hemoglobin A1c Calcium 01/23/22 06:42 WBC Sodium 135 L Chloride BUN Glucose 119 H POC Glucose (mg/dL) Hemoglobin A1c Calcium 8.1 L - Diagnostic Findings Chest x-ray: image reviewed Assessment and Plan Assessment: Acute right foot fifth digit pain secondary to osteomyelitis secondary to previous injury approximately one month ago Acute hypoxemic respiratory failure secondary to suspected severe chronic obstructive pulmonary disease Chronic and ongoing tobacco dependence of 50 years at 2-3 packs per day Hypertension Hyperlipidemia Diabetes mellitus, insulin-dependent. Plan: The patient was seen and evaluated Chest x-ray, labs and medications reviewed Continue vancomycin and cefepime We'll add DuoNeb inhalations, Symbicort Heparin for DVT prophylaxis Educated regarding the importance of complete smoking cessation NicoDerm patch applied Would benefit from an outpatient workup in our office including full PFTs He would also benefit from an out patient low-dose computed tomography scan of the chest We will continue to follow and make further recommendations based on his clinica l status I have personally seen and examined the patient, performed the documentation and the assessment and plan as written. Number of minutes spent on the visit: 20.
--- NOTE | 2022-01-23 11:45 | XR ---
EXAMINATION TYPE: XR chest 1V portable DATE OF EXAM: 01/23/2022 CLINICAL HISTORY: Difficulty breathing . TECHNIQUE: Single AP portable upright view of the chest is obtained. COMPARISON: Chest x-ray from September 13, 2019 FINDINGS: Increased linear opacities bilateral lower lungs. No pleural effusion or pneumothorax seen . Cardiac silhouette size stable and within normal limits. Osseous structures are intact. IMPRESSION: Possible mild lower lung edema and/or developing infiltrates. Progress study advised.
[2022-01-23 12:09] LABS: Glucose,Whole Blood 149 mg/dL (70-110)
[2022-01-23] MEDS: IPRATROPIUM-ALBUTEROL 3 ML NEB INHALATION SCH ×2 (15:19→20:52)
[2022-01-23 18:14] LABS: Glucose,Whole Blood 78 mg/dL (70-110)
--- NOTE | 2022-01-23 19:52 | P.PN ---
Subjective This is a pleasant 71 years old male with past medical history of diabetes mellitus, hypertension, hyperlipidemia, osteoarthritis, sleep apnea Presents because of pain and swelling of the right fifth toe of 4 day duration, he states the pain is significant and severe. He denies any other symptoms, no chest pain or dyspnea or abdominal pain or vom iting or diarrhea. No urinary complaints. No fever. He smokes 3 packs per day and he was counseled to quit and he agrees and he agrees to the nicotine patch. He denies alcohol, he denies current illicit drugs he states that he used to abuse drugs but that was many years before. Vitas looks stable He has mild leukocytosis of 11,000, rest of CBC, BMP and liver enzymes are unremarkable Right foot x-ray showing radiographic findings suggestive of acute osteomyelitis of the distal fifth toe 01/23/2022 Patient still being treated for his right fifth toe osteomyelitis, his symptoms are located to this toe, he has some difficulty with limping and during walking but he walks by himself. Vascular surgery or the evaluated the patient, he is continued with conservative management currently ID team on the case and is covered with IV vancomycin and cefepime. This morning he was mildly hypoxic but with no respiratory distress, he is heavy smoker about 3 packs per day. Pulmonary team consulted who recommended a breathing treatment and follow-up outpatient for pulmonary function test and computed tomography scan of the chest. patient was found to be hypoxic at about 86% this morning, his oxygen level improved with 2 L oxygen via nasal cannula Chest x-ray showing possible mind lower lobe lung edema and/or development infiltrates. Progress study advised Wound culture obtained as well Review of systems CONSTITUTIONAL: No fever, no malaise, no fatigue. HEENT: No recent visual problems or hearing problems. Denied any sore throat. CARDIOVASCULAR: No orthopnea, PND, no palpitations, no syncope. GASTROINTESTINAL: No diarrhea, no nausea, no vomiting, no abdominal pain. Norm oactive bowel sounds. NEUROLOGICAL: No headaches, no weakness, no numbness. HEMATOLOGICAL: Denies any bleeding or petechiae. GENITOURINARY: Denies any burning micturition, frequency, or urgency. ENDOCRINE: Denies any polyuria or polydipsia. Active Medications Generic Name Dose Route Start Last Admin Trade Name Freq PRN Reason Stop Dose Admin Albuterol/Ipratropium 3 ml 01/23/22 11:42 Ipratropium-Albuterol 3 Ml Neb INHALATION RT-Q2H PRN Shortness Of Breath Or Wheezing Albuterol/Ipratropium 3 ml 01/23/22 12:00 01/23/22 15:19 Ipratropium-Albuterol 3 Ml Neb INHALATION Not Given RT-QID DAMARI Atorvastatin Calcium 40 mg 01/23/22 06:00 01/23/22 06:10 Atorvastatin 40 Mg Tab PO 40 mg DAILY@0600 DAMARI Administration Budesonide/Formoterol Fumarate 2 puff 01/23/22 20:00 Symbicort 160-4.5 Mcg Inhaler INHALATION RT-BID DAMARI Calcium Carbonate/Glycine 500 mg 01/23/22 06:00 01/23/22 06:10 Calcium Carbonate 500 Mg Chewable PO 500 mg DAILY@0600 DAMARI Administration Collagenase 1 applic 01/23/22 09:00 01/23/22 09:01 Collagenase 250 Unit/Gm Ointment 30 Gm Tube TOPICAL 1 applic DAILY DAMARI Administration Protocol Dextrose/Water 25 ml 01/22/22 19:10 Dextrose 50% Syringe 50 Ml IVP PER PROTOCOL PRN Hypoglycemia Protocol Dextrose/Water 50 ml 01/22/22 19:10 Dextrose 50% Syringe 50 Ml IVP PER PROTOCOL PRN Hypoglycemia Protocol Famotidine 20 mg 01/22/22 21:00 01/23/22 09:02 Famotidine 20 Mg/2 Ml Vial IV 20 mg Q12HR DAMARI Administration Glimepiride 1 mg 01/23/22 06:00 01/23/22 06:10 Glimepiride 1 Mg Tab PO 1 mg DAILY@0600 DAMARI Administration Heparin Sodium (Porcine) 5,000 unit 01/23/22 08:00 01/23/22 15:28 Heparin Sodium,Porcine/Pf 5,000 Unit/0.5 Ml Syringe SQ 5,000 unit Q8HR DAMARI Administration Hydromorphone HCl 0.5 mg 01/22/22 13:48 Hydromorphone 0.5 Mg/0.5 Ml Syringe IVP Q3HR PRN Moderate Pain (Scale 4 to 6) Vancomycin HCl 1,750 mg/ 500 mls @ 167 mls/hr 01/23/22 02:00 01/23/22 15:28 Sodium Chloride IVPB 167 mls/hr Q12H DAMARI Administration Cefepime HCl 2 gm/ Sodium 100 mls @ 25 mls/hr 01/22/22 21:00 01/23/22 09:02 Chloride IVPB 25 mls/hr Q12HR [facility] Administration Protocol Insulin Aspart 0 unit 01/22/22 21:00 01/23/22 18:40 Insulin Aspart (Novolog) 100 Unit/Ml Vial SQ Not Given ACHS [facility] Protocol Insulin Detemir 40 unit 01/23/22 07:00 01/23/22 09:03 Insulin Detemir (Levemir) 100 Unit/Ml Syr SQ 40 unit DAILY@0700 [facility] Administration Lisinopril 2.5 mg 01/23/22 06:00 01/23/22 06:10 Lisinopril 2.5 Mg Tab PO 2.5 mg DAILY@0600 [facility] Administration Miscellaneous Information 0 each 01/25/22 01:00 Vancomycin Trough Due 1 Each Misc MISCELLANE 01/25/22 01:01 DIRECTED ONE Morphine Sulfate 4 mg 01/22/22 13:48 01/23/22 15:36 Morphine Sulfate 4 Mg/Ml Syringe IV 4 mg Q4HR PRN Administration Severe Pain (Scale 7 to 10) Naloxone HCl 0.2 mg 01/22/22 13:48 Naloxone 0.4 Mg/Ml 1 Ml Vial IV Q2M PRN Opioid Reversal Nicotine 1 patch 01/23/22 09:00 01/23/22 09:04 Nicotine 21mg/24hr Patch TRANSDERM 1 patch DAILY [facility] Administration Enzalutamide [Xtandi 160 mg 01/23/22 06:00 01/23/22 05:32 ] 40 Mg Capsule PO Not Given DAILY@0600 [facility] Ondansetron HCl 4 mg 01/22/22 13:48 Ondansetron 4 Mg/2 Ml Vial IVP Q8HR PRN Nausea And Vomiting Objective - Vital Signs Vital signs: Vital Signs Temp 98.1 F 01/23/22 19:38 Pulse 69 01/23/22 19:38 Resp 16 01/23/22 19:38 BP 107/61 01/23/22 19:38 Pulse Ox 90 L 01/23/22 19:38 FiO2 Intake & Output 01/23/22 01/23/22 01/24/22 06:59 18:59 06:59 Intake Total 240 Balance 240 Intake: Oral 240 Other: # Voids 2 2 - Labs CBC & Chem 7: 01/23/22 06:42 11/30/22 06:42 Labs: Abnormal Lab Results - Last 24 Hours (Table) 01/22/22 01/22/22 01/23/22 Range/Units 13:33 20:45 06:03 WBC (3.8-10.6) k/uL Sodium (137-145) mmol/L Glucose (74-99) mg/dL POC Glucose (mg/dL) 155 H 130 H (70-110) mg/dL Hemoglobin A1c 7.4 H (0.0-6.0) % Calcium (8.4-10.2) mg/dL 01/23/22 01/23/22 01/23/22 Range/Units 06:42 06:42 11:55 WBC 10.9 H (3.8-10.6) k/uL Sodium 135 L (137-145) mmol/L Glucose 119 H (74-99) mg/dL POC Glucose (mg/dL) 149 H (70-110) mg/dL Hemoglobin A1c (0.0-6.0) % Calcium 8.1 L (8.4-10.2) mg/dL Microbiology - Last 24 Hours (Table) 01/23/22 13:10 Anaerobic Culture - Preliminary Foot - Right 01/23/22 13:10 Wound Culture - Preliminary Foot - Right 01/22/22 13:33 Blood Culture - Preliminary Blood No Growth after 24 hours 01/22/22 14:00 Blood Culture - Preliminary Blood No Growth after 24 hours Assessment and Plan Assessment: Right fifth toe osteomyelitis Nicotine dependence Possible mild acute COPD exacerbation Acute hypoxic respiratory failure Hypertension Diabetes mellitus Hyperlipidemia Obesity with BMI of 31.6 History of osteoarthritis History of sleep apnea Plan: Vascular surgery consult, continue with conservative management Continue with antibiotic Pulmonary team consult, continue with oxygen and breathing treatment. Patient will need outpatient follow-up with pulmonary service for PFT and CAT scan of the chest per recommend Continue with insulin sliding scale Infectious disease consult Labs and medication were reviewed.. Continue same treatment. Continue with symptomatic treatment. Resume home medication. Monitor lytes and vitals. DVT and GI prophylaxis. Further recommendations as per clinical course of the patient DVT prophylaxis: Subcutaneous heparin GI Prophylaxis: Pepcid PT/OT: Pending Prognosis is guarded
--- NOTE | 2022-01-23 20:05 | P.PN ---
Progress Note - Text 71-year-old gentleman right foot fifth toe callus formation with superficial ulcer x-ray shows osteo-mellitus of the fifth digit patient is an IV antibiotic and we been using Santyl cream which be continued changed the dressing daily with Santyl cream
[2022-01-23 20:24] LABS: Glucose,Whole Blood 169 mg/dL (70-110)
[2022-01-23] MEDS: SYMBICORT 160-4.5 MCG INHALER INHALATION SCH (20:52)
--- NOTE | 2022-01-23 22:42 | P.CONS ---
History of Present Illness - Reason for Consult Consult date: 01/23/22 Osteomyelitis Requesting physician: Jarrell E Sheet - Chief Complaint Right fifth toe pain swelling and drainage x few days - History of Present Illness Patient is a 71-year-old male with a past medical history taken for diabetes mellitus hypertension hyperlipidemia osteoarthritis presenting to ER for evaluation of the right fifth toe swelling and redness that has been getting worse for the last 4 days patient mention he did have some prominent initially about a month ago and apparently did have a history of trauma however the patient subsequently did have improvement in his symptomatology and started getting worse over the last 4 days patient describing the pain to be sharp 5-6 out of 10 no radiation patient on presentation to the hospital was afebrile and no fever has been recorded subsequently patient did have a white count of 11,000 kidney function has been normal blood cultures obtained which are currently pending patient did have x-ray of the toe radiographic findings suggest acute osteomyelitis distal fifth toe patient was started on cefepime and vancomycin infectious disease was consulted for further management of antibiotic therapy Review of Systems Positive point has been mentioned in the HPI rest of the systems are negative Past Medical History Past Medical History: Diabetes Mellitus, Hyperlipidemia, Hypertension, Osteoarthritis (OA), Sleep Apnea/CPAP/BIPAP Additional Past Medical History / Comment(s): PROSTATE CANCER. CONCUSSION WITH WHEN HE WAS 9 YR HAD TWO HOLES DRILLED. History of Any Multi-Drug Resistant Organisms: None Reported Additional Past Surgical History / Comment(s): MINOR LACERATION Past Anesthesia/Blood Transfusion Reactions: Unable to Obtain Past Psychological History: No Psychological Hx Reported Smoking Status: Current every day smoker Past Alcohol Use History: None Reported Past Drug Use History: None Reported Medications and Allergies Home Medications Medication Instructions Recorded Confirmed Type Calcium Carbonate [Calcium] 600 mg PO DAILY@0600 01/06/20 01/22/22 History Enzalutamide [Xtandi] 160 mg PO DAILY@0600 01/06/20 01/22/22 History Glimepiride [Amaryl] 1 mg PO DAILY@0600 01/06/20 01/22/22 History Glucos Sul 2Kcl/MSM/Chond/C/Mn 2 tab PO DAILY@0600 01/06/20 01/22/22 History [Glucosamine Chondroitin Cap] Multivitamins, Thera [Multivitamin 1 tab PO DAILY@0600 01/06/20 01/22/22 History (formulary)] [place]-3 Fatty Acids/Fish Oil [Fish 2 cap PO DAILY@0600 01/06/20 01/22/22 History Oil 1,000 mg Softgel] Turmeric Root Extract [Turmeric] 500 mg PO DAILY@0600 01/06/20 01/22/22 History lisinopriL [Zestril] 2.5 mg PO DAILY@0600 01/06/20 01/22/22 History Atorvastatin Calcium [Lipitor] 40 mg PO DAILY@0600 01/22/22 01/22/22 History Insulin Glargine,Hum.rec.anlog 40 units SQ DAILY@1800 01/22/22 01/22/22 History [Lantus Solostar Pen] cefTRIAXone [Rocephin] 2,000 mg IVP Q24HR #28 each 01/25/22 Rx Allergies Allergy/AdvReac Type Severity Reaction Status Date / Time No Known Allergies Allergy Verified 01/22/22 14:30 Physical Exam Vitals: Vital Signs Temp Pulse Pulse Resp BP BP BP 01/23/22 08:00 98.3 F 85 18 110/49 01/23/22 01:49 99.1 F 92 17 130/74 01/22/22 20:18 98.2 F 72 18 146/87 01/22/22 19:43 01/22/22 19:26 83 18 100/62 01/22/22 10:53 97.7 F 83 18 113/73 Pulse Ox 01/23/22 08:00 86 L 01/23/22 01:49 90 L 01/22/22 20:18 96 01/22/22 19:43 93 L 01/22/22 19:26 90 L 01/22/22 10:53 94 L Intake and Output 01/22/22 01/23/22 01/23/22 22:59 06:59 14:59 Other: # Voids 2 Weight 99.79 kg GENERAL DESCRIPTION: Anteriorly male lying in bed, no distress. No tachypnea or accessory muscle of respiration use. HEENT: Shows Pallor , no scleral icterus. Oral mucous membrane is dry. No pharyngeal erythema or thrush NECK: Trachea central, no thyromegaly. LUNGS: Unlabored breathing. Clear to auscultation anteriorly. No wheeze or crackle. HEART: S1, S2, regular rate and rhythm. No loud murmur ABDOMEN: Soft, no tenderness , guarding or rigidity, no organomegaly EXTREMITIES: Right fifth toe did have swelling redness and some drainage SKIN: No rash, no masses palpable. NEUROLOGICAL: The patient is awake, alert, oriented x3, mood and affect normal. Results CBC & Chem 7: 01/25/22 16:16 01/25/22 02:00 Labs: Abnormal Lab Results - Last 24 Hours (Table) 01/22/22 01/22/22 01/22/22 Range/Units 13:33 13:33 13:33 WBC 11.0 H (3.8-10.6) k/uL Sodium (137-145) mmol/L Chloride 108 H (98-107) mmol/L BUN 25 H (9-20) mg/dL Glucose 116 H (74-99) mg/dL POC Glucose (mg/dL) (70-110) mg/dL Hemoglobin A1c 7.4 H (0.0-6.0) % Calcium (8.4-10.2) mg/dL 01/22/22 01/23/22 01/23/22 Range/Units 20:45 06:03 06:42 WBC 10.9 H (3.8-10.6) k/uL Sodium (137-145) mmol/L Chloride (98-107) mmol/L BUN (9-20) mg/dL Glucose (74-99) mg/dL POC Glucose (mg/dL) 155 H 130 H (70-110) mg/dL Hemoglobin A1c (0.0-6.0) % Calcium (8.4-10.2) mg/dL 01/23/22 Range/Units 06:42 WBC (3.8-10.6) k/uL Sodium 135 L (137-145) mmol/L Chloride (98-107) mmol/L BUN (9-20) mg/dL Glucose 119 H (74-99) mg/dL POC Glucose (mg/dL) (70-110) mg/dL Hemoglobin A1c (0.0-6.0) % Calcium 8.1 L (8.4-10.2) mg/dL Assessment and Plan (1) Osteomyelitis of toe of right foot Current Visit: Yes Status: Acute Code(s): M86.9 - OSTEOMYELITIS, UNSPECIFIED SNOMED Code(s): 685514909 Plan: 1patient with right fifth toe diabetic foot infection apparently started with a trauma about a month ago now with evidence of osteomyelitis on the basis of the plain x-rays in this patient with no fever did have mild elevated white count with a question of abnormality seen on the x-ray related to possible trauma versus infection x-rays will be reviewed with radiologist. 2local wound culture to guide further antibiotic therapy 3we will check a CRP and procalcitonin sed rate 4continue cefepime and Vanco while waiting for the culture to finalize We will follow on clinical condition and cultures to further adjust medication if needed Thank you for this consultation will follow this patient along with you Time with Patient: Greater than 30
[2022-01-24] MEDS: HEPARIN SODIUM,PORCINE/PF 5,000 UNIT/0.5 ML SYRINGE SQ SCH ×4 (01:59→20:37)
[2022-01-24] MEDS: VANCOMYCIN 1,750 MG in SODIUM CHLORIDE 0.9% 500 ML 500 ML IVPB SCH ×2 (02:43→15:41)
[2022-01-24 05:25] LABS: ALT 17 U/L (4-49); AST 23 U/L (17-59); African American GFR (CKD) >90 (>60 ml/min/1.73 sqM); Albumin 3.6 g/dL (3.5-5.0); Albumin/Globulin Ratio 1.8; Alkaline Phosphatase 59 U/L (38-126); Anion Gap 2 mmol/L; Blood Urea Nitrogen 17 mg/dL (9-20); Calcium 8.4 mg/dL (8.4-10.2); Carbon Dioxide 26 mmol/L (22-30); Chloride 108 mmol/L (98-107); Glucose 163 mg/dL (74-99); Non-African American GFR(CKD) >90 (>60 ml/min/1.73 sqM); Potassium 4.2 mmol/L (3.5-5.1); Sodium 136 mmol/L (137-145); Total Bilirubin 0.6 mg/dL (0.2-1.3); Total Protein 5.6 g/dL (6.3-8.2)
[2022-01-24 06:25] LABS: Glucose,Whole Blood 132 mg/dL (70-110)
[2022-01-24] MEDS: INSULIN ASPART (NovoLOG) 100 UNIT/ML VIAL SQ SCH ×4 (06:28→20:36)
[2022-01-24] MEDS: ATORVASTATIN 40 MG TAB PO SCH (06:41)
[2022-01-24] MEDS: GLIMEPIRIDE 1 MG TAB PO SCH (06:41)
[2022-01-24] MEDS: CALCIUM CARBONATE 500 MG CHEWABLE PO SCH (06:41)
[2022-01-24] MEDS: INSULIN DETEMIR (LEVEMIR) 100 UNIT/ML SYR SQ SCH (06:41)
[2022-01-24] MEDS: SYMBICORT 160-4.5 MCG INHALER INHALATION SCH ×2 (08:07→20:01)
[2022-01-24] MEDS: IPRATROPIUM-ALBUTEROL 3 ML NEB INHALATION SCH ×4 (08:08→20:01)
[2022-01-24 09:29] LABS: Basophils # (A) 0.07 X 10*3/uL (0.00-0.10); Basophils % (A) 0.7 %; Eosinophils # (A) 0.18 X 10*3/uL (0.04-0.35); Eosinophils % (A) 1.9 %; HCT 42.8 % (39.6-50.0); HGB 14.8 g/dL (13.0-17.0); Immature Grans, Automated 0.4 %; Lymphocytes # (A) 2.35 X 10*3/uL (0.90-5.00); Lymphocytes % (A) 24.6 %; MCHC 34.6 g/dL (32.0-37.0); MCV 92.6 fL (80.0-97.0); Mean Platelet Volume 10.3 fL (9.5-12.2); Monocytes # (A) 1.14 X 10*3/uL (0.20-1.00); Monocytes % (A) 11.9 %; NRBC Per 100 WBC 0 /100 WBCS (0.0-0.0); Neutrophils # (A) 5.76 X 10*3/uL (1.80-7.70); Neutrophils % (A) 60.5 %; Platelet Count 153 X 10*3/uL (140-440); RBC 4.62 X 10*6/uL (4.40-5.60); RDW 13.2 % (11.5-14.5); WBC 9.54 X 10*3/uL (4.50-10.00)
--- NOTE | 2022-01-24 09:53 | P.PN ---
Subjective Progress Note Date: 01/24/22 This is a pleasant 71-year-old male patient with a known history of hyperlipidemia, hypertension, diabetes mellitus, obstructive sleep apnea, chronic and ongoing tobacco dependence of 50 years at 2-3 packs per day. 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 He's not been told he has COPD. He's not on any inhalers at home. If he states he does have occasional cough in the a.m. with white productive phlegm. He is quite dyspneic on minimal exertion. He had presented here to the emergency room yesterday with complaints of pain in his right fifth toe. He had bumped it about 1 month ago and since that time it is done bruising and now looking black. There is significant redness around the toe. X-ray findings are suggestive of acute osteomyelitis in the distal fifth toe. He's been initiated on vancomycin and cefepime. He was found to be hypoxemic with O2 saturation 86% on room air. We are consulted for the same. Chest x-ray does show evidence of COPD but no acute pulmonary pro cess. He is sitting up at the bedside. Awake and alert in no acute distress. Maintaining better oxygen saturations in the 90s on 2 L/m per nasal cannula. Afebrile. Hemodynamically stable The patient is seen today 01/24/2022 in follow-up on the regular medical floor. He is currently sitting up in bed. Awake and alert in no acute distress. Maintaining good O2 saturations in the 90s on room air. He's been afebrile. Hemodynamically stable. Right foot wound cultures are pending. Blood culture revealing no growth. White count 9.5. Hemoglobin 14.8. Sodium 136. Potassium 4.2. BUN 17. Creatinine 0.71. Glucose 132. He's been initiated on DuoNeb inhalations, Symbicort. He is on antibiotics in the form of cefepime and vancomycin. NicoDerm patch in place. Heparin for DVT prophylaxis. Objective - Vital Signs Vital signs: Vital Signs Temp 98.4 F 01/24/22 08:00 Pulse 104 H 01/24/22 09:00 Resp 18 01/24/22 08:00 BP 135/78 01/24/22 09:00 Pulse Ox 92 L 01/24/22 08:00 FiO2 Intake & Output 01/23/22 01/24/22 01/24/22 18:59 06:59 18:59 Intake Total 240 Balance 240 Intake: Oral 240 Other: # Voids 2 2 - Exam GENERAL EXAM: Alert, 71-year-old male patient, on room air, comfortable in no apparent distress. HEAD: Normocephalic. EYES: Normal reaction of pupils, equal size. NOSE: Clear with pink turbinates. THROAT: No erythema or exudates. NECK: No masses, no JVD. CHEST: No chest wall deformity. LUNGS: Equal air entry with no crackles, wheeze, rhonchi or dullness. Diminished. CVS: S1 and S2 normal with no audible murmur, regular rhythm. ABDOMEN: No hepatosplenomegaly, normal bowel sounds, no guarding or rigidity. SPINE: No scoliosis or deformity SKIN: No rashes CENTRAL NERVOUS SYSTEM: No focal deficits, tone is normal in all 4 extremities. EXTREMITIES: There is ecchymosis and erythema of the right fifth toe. No clubbing, no cyanosis. Peripheral pulses are intact. - Labs CBC & Chem 7: 01/24/22 04:20 01/24/22 04:20 Labs: Abnormal Lab Results - Last 24 Hours (Table) 01/23/22 01/23/22 01/24/22 Range/Units 11:55 20:17 04:20 Monocytes # (0.20-1.00) X 10*3/uL Sodium 136 L (137-145) mmol/L Chloride 108 H (98-107) mmol/L Glucose 163 H (74-99) mg/dL POC Glucose (mg/dL) 149 H 169 H (70-110) mg/dL Total Protein 5.6 L (6.3-8.2) g/dL 01/24/22 01/24/22 Range/Units 04:20 06:11 Monocytes # 1.14 H (0.20-1.00) X 10*3/uL Sodium (137-145) mmol/L Chloride (98-107) mmol/L Glucose (74-99) mg/dL POC Glucose (mg/dL) 132 H (70-110) mg/dL Total Protein (6.3-8.2) g/dL Microbiology - Last 24 Hours (Table) 01/23/22 13:10 Gram Stain - Preliminary Foot - Right Wound Culture - Preliminary 01/23/22 13:10 Anaerobic Culture - Preliminary Foot - Right 01/22/22 13:33 Blood Culture - Preliminary Blood No Growth after 24 hours 01/22/22 14:00 Blood Culture - Preliminary Blood No Growth after 24 hours Assessment and Plan Assessment: Acute right foot fifth digit pain secondary to osteomyelitis secondary to previous injury approximately one month ago currently on vancomycin and cefepime Acute hypoxemic respiratory failure secondary to suspected severe chronic obstructive pulmonary disease, recovered and on room air Chronic and ongoing tobacco dependence of 50 years at 2-3 packs per day Hypertension Hyperlipidemia Diabetes mellitus, insulin-dependent. Plan: The patient was seen and evaluated Labs and medications reviewed Continue vancomycin and cefepime Continue DuoNeb inhalations, Symbicort Educated regarding the importance of medication compliance for his suspected COPD Educated regarding the importance of complete smoking cessation Would benefit from an outpatient workup in our office including full PFTs He would also benefit from an out patient low-dose computed tomography scan of the chest We will continue to follow I have personally seen and examined the patient, performed the documentation and the assessment and plan as written. Number of minutes spent on the visit: 10.
[2022-01-24 10:29] LABS: Erythrocyte Sedimentation Rate 11 mm/Hr (0-20)
[2022-01-24] MEDS: CEFEPIME 2 GM in SODIUM CHLORIDE 0.9% 100 ML IVPB SCH ×2 (10:30→20:36)
[2022-01-24] MEDS: NICOTINE 21MG/24HR PATCH TRANSDERM SCH (10:31)
[2022-01-24] MEDS: FAMOTIDINE 20 MG TAB PO SCH ×2 (10:31→20:37)
[2022-01-24] MEDS: COLLAGENASE 250 UNIT/GM OINTMENT 30 GM TUBE TOPICAL SCH (10:32)
[2022-01-24 12:39] LABS: Glucose,Whole Blood 121 mg/dL (70-110)
[2022-01-24 16:33] LABS: C Reactive Protein 0.7 mg/dL (<1.0)
[2022-01-24 17:34] LABS: Glucose,Whole Blood 116 mg/dL (70-110)
[2022-01-24 20:24] LABS: Glucose,Whole Blood 200 mg/dL (70-110)
--- NOTE | 2022-01-24 23:07 | P.PN ---
Subjective This is a pleasant 71 years old male with past medical history of diabetes mellitus, hypertension, hyperlipidemia, osteoarthritis, sleep apnea Presents because of pain and swelling of the right fifth toe of 4 day duration, he states the pain is significant and severe. He denies any other symptoms, no chest pain or dyspnea or abdominal pain or vom iting or diarrhea. No urinary complaints. No fever. He smokes 3 packs per day and he was counseled to quit and he agrees and he agrees to the nicotine patch. He denies alcohol, he denies current illicit drugs he states that he used to abuse drugs but that was many years before. Vitas looks stable He has mild leukocytosis of 11,000, rest of CBC, BMP and liver enzymes are unremarkable Right foot x-ray showing radiographic findings suggestive of acute osteomyelitis of the distal fifth toe 01/23/2022 Patient still being treated for his right fifth toe osteomyelitis, his symptoms are located to this toe, he has some difficulty with limping and during walking but he walks by himself. Vascular surgery or the evaluated the patient, he is continued with conservative management currently ID team on the case and is covered with IV vancomycin and cefepime. This morning he was mildly hypoxic but with no respiratory distress, he is heavy smoker about 3 packs per day. Pulmonary team consulted who recommended a breathing treatment and follow-up outpatient for pulmonary function test and computed tomography scan of the chest. patient was found to be hypoxic at about 86% this morning, his oxygen level improved with 2 L oxygen via nasal cannula Chest x-ray showing possible mind lower lobe lung edema and/or development infiltrates. Progress study advised Wound culture obtained as well 01/24/2022 Patient breathing is stable, he is saturating 91 on room air. He continued with bronchodilator, I talked to the patient about the importance of follow-up with pulmonary service upon discharge for pulmonary function testing CAT scan of the chest and he agrees. Distal receiving IV antibiotics for his right fifth toe osteomyelitis, he is on cefepime and IV vancomycin, wound culture is pending for now, patient informed and he agrees with the treatment plan. Leukocytosis improved Objective - Vital Signs Vital signs: Vital Signs Temp 98.4 F 01/24/22 08:00 Pulse 104 H 01/24/22 09:00 Resp 18 01/24/22 08:00 BP 135/78 01/24/22 09:00 Pulse Ox 92 L 01/24/22 08:00 FiO2 Intake & Output 01/23/22 01/24/22 01/24/22 18:59 06:59 18:59 Intake Total 240 Balance 240 Intake: Oral 240 Other: # Voids 2 2 - Exam -GENERAL: The patient is alert and oriented x3, not in any acute distress. Well developed, well nourished. Obese HEENT: Pupils are round and equally reacting to light. EOMI. No scleral icterus. No conjunctival pallor. Normocephalic, atraumatic. No pharyngeal erythema. No thyromegaly. CARDIOVASCULAR: S1 and S2 present. No murmurs, rubs, or gallops. PULMONARY: Chest is clear to auscultation, no wheezing or crackles. ABDOMEN: Soft, nontender, nondistended, normoactive bowel sounds. No palpable organomegaly. MUSCULOSKELETAL: No joint swelling or deformity. -EXTREMITIES: No cyanosis, clubbing, or pedal edema. Right fifth toe in dressing NEUROLOGICAL: Gross neurological examination did not reveal any focal deficits. SKIN: No rashes. no petechiae. - Labs CBC & Chem 7: 01/24/22 04:20 01/24/22 04:20 Labs: Abnormal Lab Results - Last 24 Hours (Table) 01/23/22 01/24/22 01/24/22 Range/Units 20:17 04:20 04:20 Monocytes # 1.14 H (0.20-1.00) X 10*3/uL Sodium 136 L (137-145) mmol/L Chloride 108 H (98-107) mmol/L Glucose 163 H (74-99) mg/dL POC Glucose (mg/dL) 169 H (70-110) mg/dL Total Protein 5.6 L (6.3-8.2) g/dL 01/24/22 01/24/22 Range/Units 06:11 12:32 Monocytes # (0.20-1.00) X 10*3/uL Sodium (137-145) mmol/L Chloride (98-107) mmol/L Glucose (74-99) mg/dL POC Glucose (mg/dL) 132 H 121 H (70-110) mg/dL Total Protein (6.3-8.2) g/dL Microbiology - Last 24 Hours (Table) 01/23/22 13:10 Gram Stain - Preliminary Foot - Right Wound Culture - Preliminary 01/23/22 13:10 Anaerobic Culture - Preliminary Foot - Right 01/22/22 13:33 Blood Culture - Preliminary Blood No Growth after 24 hours 01/22/22 14:00 Blood Culture - Preliminary Blood No Growth after 24 hours Assessment and Plan Assessment: Right fifth toe osteomyelitis Nicotine dependence mild acute COPD exacerbation Acute hypoxic respiratory failure Hypertension Diabetes mellitus Hyperlipidemia Obesity with BMI of 31.6 History of osteoarthritis History of sleep apnea Plan: Vascular surgery consult, continue with conservative management Continue with antibiotic Pulmonary team consult, continue with oxygen and breathing treatment. Patient will need outpatient follow-up with pulmonary service for PFT and CAT scan of the chest per recommend Continue with insulin sliding scale Infectious disease consult Labs and medication were reviewed.. Continue same treatment. Continue with symptomatic treatment. Resume home medication. Monitor lytes and vitals. DVT and GI prophylaxis. Further recommendations as per clinical course of the patient DVT prophylaxis: Subcutaneous heparin GI Prophylaxis: Pepcid PT/OT: Pending Prognosis is guarded
[2022-01-25] MEDS ORDERED: VANCOMYCIN TROUGH DUE 1 EACH MISC MISCELLANE ONE (01:00)
[2022-01-25] MEDS: VANCOMYCIN 1,750 MG in SODIUM CHLORIDE 0.9% 500 ML 500 ML IVPB SCH (02:00)
[2022-01-25 03:05] LABS: African American GFR (CKD) >90 (>60 ml/min/1.73 sqM); Non-African American GFR(CKD) >90 (>60 ml/min/1.73 sqM)
[2022-01-25] MEDS: CALCIUM CARBONATE 500 MG CHEWABLE PO SCH (06:10)
[2022-01-25] MEDS: INSULIN ASPART (NovoLOG) 100 UNIT/ML VIAL SQ SCH ×4 (06:28→21:26)
[2022-01-25 06:29] LABS: Glucose,Whole Blood 147 mg/dL (70-110)
[2022-01-25] MEDS: ATORVASTATIN 40 MG TAB PO SCH (06:36)
[2022-01-25] MEDS: INSULIN DETEMIR (LEVEMIR) 100 UNIT/ML SYR SQ SCH (06:36)
[2022-01-25] MEDS: GLIMEPIRIDE 1 MG TAB PO SCH (06:36)
[2022-01-25] MEDS: COLLAGENASE 250 UNIT/GM OINTMENT 30 GM TUBE TOPICAL SCH (09:42)
[2022-01-25] MEDS: CEFEPIME 2 GM in SODIUM CHLORIDE 0.9% 100 ML IVPB SCH (09:42)
[2022-01-25] MEDS: NICOTINE 21MG/24HR PATCH TRANSDERM SCH (09:42)
[2022-01-25] MEDS: FAMOTIDINE 20 MG TAB PO SCH ×2 (09:42→21:26)
[2022-01-25] MEDS: HEPARIN SODIUM,PORCINE/PF 5,000 UNIT/0.5 ML SYRINGE SQ SCH ×3 (09:43→21:26)
[2022-01-25] MEDS ORDERED: VANCOMYCIN 1,500 MG in SODIUM CHLORIDE 0.9% 500 ML 500 ML IVPB SCH (10:00)
--- NOTE | 2022-01-25 11:19 | P.PN ---
Subjective Progress Note Date: 01/25/22 This is a pleasant 71-year-old male patient with a known history of hyperlipidemia, hypertension, diabetes mellitus, obstructive sleep apnea, chronic and ongoing tobacco dependence of 50 years at 2-3 packs per day. 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 He's not been told he has COPD. He's not on any inhalers at home. If he states he does have occasional cough in the a.m. with white productive phlegm. He is quite dyspneic on minimal exertion. He had presented here to the emergency room yesterday with complaints of pain in his right fifth toe. He had bumped it about 1 month ago and since that time it is done bruising and now looking black. There is significant redness around the toe. X-ray findings are suggestive of acute osteomyelitis in the distal fifth toe. He's been initiated on vancomycin and cefepime. He was found to be hypoxemic with O2 saturation 86% on room air. We are consulted for the same. Chest x-ray does show evidence of COPD but no acute pulmonary pro cess. He is sitting up at the bedside. Awake and alert in no acute distress. Maintaining better oxygen saturations in the 90s on 2 L/m per nasal cannula. Afebrile. Hemodynamically stable The patient is seen today 01/24/2022 in follow-up on the regular medical floor. He is currently sitting up in bed. Awake and alert in no acute distress. Maintaining good O2 saturations in the 90s on room air. He's been afebrile. Hemodynamically stable. Right foot wound cultures are pending. Blood culture revealing no growth. White count 9.5. Hemoglobin 14.8. Sodium 136. Potassium 4.2. BUN 17. Creatinine 0.71. Glucose 132. He's been initiated on DuoNeb inhalations, Symbicort. He is on antibiotics in the form of cefepime and vancomycin. NicoDerm patch in place. Heparin for DVT prophylaxis. The patient is seen today 01/25/2022 in follow-up on the regular medical floor. He is currently resting comfortably in bed. Awake and alert in no acute distress. Maintaining O2 saturations in the 90s on room air. He's been afebrile. Hemodynamically stable. He has continued to decline breathing treatments and Symbicort. He is continued on NicoDerm patch. He is continued on vancomycin and cefepime. Heparin for DVT prophylaxis. Objective - Vital Signs Vital signs: Vital Signs Temp 97.6 F 01/25/22 07:20 Pulse 59 L 01/25/22 07:20 Resp 16 01/25/22 07:20 BP 145/95 01/25/22 07:20 Pulse Ox 93 L 01/25/22 07:20 FiO2 Intake & Output 01/24/22 01/25/22 01/25/22 18:59 06:59 18:59 Intake Total 480 240 118 Balance 480 240 118 Intake: Oral 480 240 118 Other: # Voids 2 2 - Exam GENERAL EXAM: Alert, pleasant 71-year-old male patient, on room air, comfortable in no apparent distress. HEAD: Normocephalic. EYES: Normal reaction of pupils, equal size. NOSE: Clear with pink turbinates. THROAT: No erythema or exudates. NECK: No masses, no JVD. CHEST: No chest wall deformity. LUNGS: Equal air entry with no crackles, wheeze, rhonchi or dullness. Diminished. CVS: S1 and S2 normal with no audible murmur, regular rhythm. ABDOMEN: No hepatosplenomegaly, normal bowel sounds, no guarding or rigidity. SPINE: No scoliosis or deformity SKIN: No rashes CENTRAL NERVOUS SYSTEM: No focal deficits, tone is normal in all 4 extremities. EXTREMITIES: There is ecchymosis and erythema of the right fifth toe. No clubbing, no cyanosis. Peripheral pulses are intact. - Labs CBC & Chem 7: 01/24/22 04:20 01/25/22 02:00 Labs: Abnormal Lab Results - Last 24 Hours (Table) 01/24/22 01/24/22 01/24/22 Range/Units 12:32 17:28 20:21 POC Glucose (mg/dL) 121 H 116 H 200 H (70-110) mg/dL 01/25/22 Range/Units 06:27 POC Glucose (mg/dL) 147 H (70-110) mg/dL Microbiology - Last 24 Hours (Table) 01/22/22 13:33 Blood Culture - Preliminary Blood No Growth after 48 hours 01/22/22 14:00 Blood Culture - Preliminary Blood No Growth after 48 hours 01/23/22 13:10 Gram Stain - Preliminary Foot - Right Wound Culture - Preliminary Assessment and Plan Assessment: Acute right foot fifth digit pain secondary to osteomyelitis secondary to previous injury approximately one month ago currently on vancomycin and cefepime Acute hypoxemic respiratory failure secondary to suspected severe chronic obstructive pulmonary disease, recovered and on room air Chronic and ongoing tobacco dependence of 50 years at 2-3 packs per day Hypertension Hyperlipidemia Diabetes mellitus, insulin-dependent. Plan: The patient was seen and evaluated He is stable and on room air He continues to decline breathing treatments and Symbicort Both had been been discontinued Continue vancomycin and cefepime Educated regarding the importance of complete smoking cessation Would benefit from an outpatient workup in our office including full PFTs He would also benefit from an out patient low-dose computed tomography scan of the chest We will see him on an as-needed basis I have personally seen and examined the patient, performed the documentation and the assessment and plan as written. Number of minutes spent on the visit: 10.
[2022-01-25 12:28] LABS: Glucose,Whole Blood 76 mg/dL (70-110)
[2022-01-25] MEDS ORDERED: LIDOCAINE 1% INJ 10MG/ML (5 ML VIAL-PF) SQ ONE (14:01)
--- NOTE | 2022-01-25 14:56 | IR ---
EXAM NAME: IR FLUORO GUIDANCE FOR VEIN ACC DEVICE. PROCEDURE: Image-guided placement of right upper extremity, single lumen PICC. DATE OF PROCEDURE: 01/25/2022 2:14 PM INDICATION: 71-year-old male need of long-term antibiotics. RADIOLOGIST: Dr. Watts CRIB CLERK: Anurag ANESTHESIA: Local lidocaine FLUORO TIME: 0.3 minutes. RADIATION DOSE:Ka,r = 3.0 mGy CATHETER: 4-Italian single lumen valved PICC TECHNIQUE: I verify that I have discussed the potential benefits, risks, and side effects regarding this treatme nt/procedure, the likelihood of the patient achieving his or her goals, and the potential problems th at might occur during recuperation. I verify that I have explained the alternatives to the patient including the risks, benefits, and side effects related to the alternatives and the risks related to not receiving the operation/procedure/treatment. The patient/surrogate decision maker has had an opp ortunity to ask and have questions answered. I have secured the patient's or the surrogate decision maker's consent prior to the operation/procedure/treatment. The patient was placed supine on the angiography table and the right upper extremity prepped and katelin ped, (All elements of Maximal Sterile Barrier Technique including a cap, mask, sterile gown and steri le gloves, with a large sterile sheet and hand hygiene, plus 2% chlorhexidine for cutaneous antisepsi s (or acceptable alternative antiseptics per current guideline), as well as sterile ultrasound gel an d probe covers), in the usual sterile fashion. After infiltration of local anesthetic, the brachial vein was punctured using ultrasound guidance with a 21-gauge needle. Under fluoroscopic guidance, wi automated exposure control, via Seldinger technique, a 0.018 wire and a dilator/peel-away sheath w ere placed. The wire was removed and the catheter cut to appropriate length. The tailored catheter was advanced through the peel-away and positioned using fluoroscopic guidance. The sheath was remov ed and hemostasis achieved. The catheter was flushed, and secured to the arm with a fixation device. A sterile dressing was applied. The procedure was well-tolerated and the patient discharged from [facility] room in stable condition. Dr. Watts was present for and actively participated in the p rocedure. FINDINGS: Ultrasound guidance with image documentation of antegrade blood flow was utilized for venous access. A limited documentation radiograph shows the catheter tip to be in the region of the superior atrioc aval junction. IMPRESSION: 1. Successful, uncomplicated image-guided placement of right upper extremity, 4 F, single lumen, 42 cm peripherally inserted central venous catheter. 2. The catheter is approved for immediate use.
[2022-01-25 16:42] LABS: Basophils % (A) 0 %; Eosinophils # (A) 0.2 k/uL (0-0.7); Eosinophils % (A) 2 %; HCT 42.3 % (39.0-53.0); HGB 14.5 gm/dL (13.0-17.5); Lymphocytes # (A) 1.6 k/uL (1.0-4.8); Lymphocytes % (A) 18 %; MCH 32.1 pg (25.0-35.0); MCHC 34.3 g/dL (31.0-37.0); MCV 93.3 fL (80.0-100.0); Mean Platelet Volume 8.3; Monocytes # (A) 0.7 k/uL (0-1.0); Monocytes % (A) 7 %; Neutrophils # (A) 6.2 k/uL (1.3-7.7); Neutrophils % (A) 68 %; Platelet Count 140 k/uL (150-450); RBC 4.53 m/uL (4.30-5.90); RDW 12.8 % (11.5-15.5); WBC 9.2 k/uL (3.8-10.6)
[2022-01-25 16:51] LABS: INR 0.9 (<1.2); Partial Thromboplastin Time 24.4 sec (22.0-30.0); Prothrombin Time 9.6 sec (9.0-12.0)
--- NOTE | 2022-01-25 17:07 | P.PN ---
Subjective Progress Note Date: 01/24/22 Principal diagnosis: Right fifth toe osteomyelitis Patient is a 71-year-old male with multiple comorbidities presented to the hospital right fifth toe swelling and redness with initial trauma about a month ago patient did have x-rays suggestive of acute ulcer myelitis distant of left fifth digit. On today's evaluation that is 01/24/2022, the patient denies having any fever or any chills patient pain to the right fifth toe has decreased. Denies having any chest pain or shortness of breath or cough no nausea no vomiting no abdominal pain or diarrhea Objective - Vital Signs Vital signs: Vital Signs Temp 98.4 F 01/24/22 08:00 Pulse 104 H 01/24/22 09:00 Resp 18 01/24/22 08:00 BP 135/78 01/24/22 09:00 Pulse Ox 92 L 01/24/22 08:00 FiO2 Intake & Output 01/23/22 01/24/22 01/24/22 18:59 06:59 18:59 Intake Total 240 Balance 240 Intake: Oral 240 Other: # Voids 2 2 - Exam GENERAL DESCRIPTION: An elderly male lying in bed in no distress RESPIRATORY SYSTEM: Unlabored breathing , decreased breath sounds at bases HEART: S1 S2 regular rate and rhythm , ABDOMEN: Soft , no tenderness EXTREMITIES: Right fifth toe swelling and redness slightly decreased - Labs CBC & Chem 7: 01/25/22 16:16 01/25/22 02:00 Labs: Abnormal Lab Results - Last 24 Hours (Table) 01/23/22 01/23/22 01/24/22 Range/Units 11:55 20:17 04:20 Monocytes # (0.20-1.00) X 10*3/uL Sodium 136 L (137-145) mmol/L Chloride 108 H (98-107) mmol/L Glucose 163 H (74-99) mg/dL POC Glucose (mg/dL) 149 H 169 H (70-110) mg/dL Total Protein 5.6 L (6.3-8.2) g/dL 01/24/22 01/24/22 Range/Units 04:20 06:11 Monocytes # 1.14 H (0.20-1.00) X 10*3/uL Sodium (137-145) mmol/L Chloride (98-107) mmol/L Glucose (74-99) mg/dL POC Glucose (mg/dL) 132 H (70-110) mg/dL Total Protein (6.3-8.2) g/dL Microbiology - Last 24 Hours (Table) 01/23/22 13:10 Gram Stain - Preliminary Foot - Right Wound Culture - Preliminary 01/23/22 13:10 Anaerobic Culture - Preliminary Foot - Right 01/22/22 13:33 Blood Culture - Preliminary Blood No Growth after 24 hours 01/22/22 14:00 Blood Culture - Preliminary Blood No Growth after 24 hours Assessment and Plan (1) Osteomyelitis of toe of right foot Current Visit: Yes Status: Acute Code(s): M86.9 - OSTEOMYELITIS, UNSPECIFIED SNOMED Code(s): 431104118 Plan: 1patient with right fifth toe diabetic foot infection apparently started with a trauma about a month ago now with evidence of osteomyelitis on the basis of the plain x-rays in this patient with no fever did have mild elevated white count with a question of abnormality seen on the x-ray related to possible trauma versus infection x-rays will be reviewed with radiologist. 2local wound culture are currently pending 3patient tocontinue cefepime and Vanco while waiting for the culture to finalize while waiting for the cultures to finalize Time with Patient: Less than 30
--- NOTE | 2022-01-25 17:08 | P.PN ---
Subjective Progress Note Date: 01/25/22 Principal diagnosis: Right fifth toe osteomyelitis Patient is a 71-year-old male with multiple comorbidities presented to the hospital right fifth toe swelling and redness with initial trauma about a month ago patient did have x-rays suggestive of acute ulcer myelitis distant of left fifth digit. On today's evaluation that is 01/25/2022, the patient remains to be febrile, patient pain to the right fifth toe has decreased in intensity swelling redness also decreased, the patient denies having any chest pain or shortness of breath or cough no nausea no vomiting no abdominal pain or diarrhea Objective - Vital Signs Vital signs: Vital Signs Temp 97.6 F 01/25/22 07:20 Pulse 59 L 01/25/22 07:20 Resp 16 01/25/22 07:20 BP 145/95 01/25/22 07:20 Pulse Ox 93 L 01/25/22 07:20 FiO2 Intake & Output 01/24/22 01/25/22 01/25/22 18:59 06:59 18:59 Intake Total 480 240 118 Balance 480 240 118 Intake: Oral 480 240 118 Other: # Voids 2 2 - Exam GENERAL DESCRIPTION: An elderly male lying in bed in no distress RESPIRATORY SYSTEM: Unlabored breathing , decreased breath sounds at bases HEART: S1 S2 regular rate and rhythm , ABDOMEN: Soft , no tenderness EXTREMITIES: Right fifth toe swelling and redness slightly decreased - Labs CBC & Chem 7: 01/25/22 16:16 01/25/22 02:00 Labs: Abnormal Lab Results - Last 24 Hours (Table) 01/24/22 01/24/22 01/24/22 Range/Units 12:32 17:28 20:21 POC Glucose (mg/dL) 121 H 116 H 200 H (70-110) mg/dL 01/25/22 Range/Units 06:27 POC Glucose (mg/dL) 147 H (70-110) mg/dL Microbiology - Last 24 Hours (Table) 01/23/22 13:10 Gram Stain - Final Foot - Right Wound Culture - Final 01/22/22 13:33 Blood Culture - Preliminary Blood No Growth after 48 hours 01/22/22 14:00 Blood Culture - Preliminary Blood No Growth after 48 hours Assessment and Plan (1) Osteomyelitis of toe of right foot Current Visit: Yes Status: Acute Code(s): M86.9 - OSTEOMYELITIS, UNSPECIFIED SNOMED Code(s): 752490300 Plan: 1patient with right fifth toe diabetic foot infection apparently started with a trauma about a month ago now with evidence of osteomyelitis on the basis of the plain x-rays in this patient with no fever did have mild elevated white count with a question of abnormality seen on the x-ray related to possible trauma versus infection x-rays will be reviewed with radiologist. 2 patient local culture has been negative for resistant pathogen antibiotic will be switched over to Rocephin 2 g daily PICC line placement and a close outpatient follow-up prescription was provided to the onsite case manager Time with Patient: Less than 30
[2022-01-25 17:16] LABS: Glucose,Whole Blood 186 mg/dL (70-110)
[2022-01-25 17:34] LABS: Eosinophils # (M) 0.18 k/uL (0-0.7); Lymphocytes # (M) 1.75 k/uL (1.0-4.8); Monocytes # (M) 0.28 k/uL (0-1.0); Neutrophils # (M) 6.99 k/uL (1.3-7.7); Neutrophils % (M) 76 %; Nucleated Red Blood Cells 0 /100 WBC (0-0); Polychromasia Present; Total Cells Counted 100
--- NOTE | 2022-01-25 18:39 | P.CONS ---
History of Present Illness - Reason for Consult Consult date: 01/25/22 Line insertion site bleeding. Concern for diathesis - History of Present Illness The patient is a 71-year-old white male with multiple medical problems. These include known history of metastatic prostate cancer. The patient came into the hospital because of a one-month history of pain in the right fifth toe. He init ially thought that he had bumped it, and was treated symptomatically. However over the last 4-5 days prior to admission the pain became markedly worse, impeding his ability to walk. He therefore came in as he thought that his toes broken. X-rays indicated Aussie myelitis. The patient was therefore admitted for further management. Blood cultures were negative. Wound culture showed rare Gram positive cocci. The patient was started on IV antibiotics, and a PICC linetoday for outpatient admission. Postplacement the patient was having persistent oozing at the insertion site due to which consult was placed. At the time of my evaluation, after changing the initial dressing, the bleeding appeared to have stopped. He denied any prior history of unusual bleeding or bruising. He has had pr ostate biopsies, and states that he has had no issues if he cuts himself. He also had multiple teeth extracted about 1415 years ago without any problems. There is no family history suggestive of the same. The patient denied taking any anticoagulation on aspirin. He states that he was using ibuprofen prior to his admission for the toe pain. The patient has metastatic prostate cancer, with CT scans from 09/12 showing osseous metastasis, prostatomegaly, as well as diffuse adenopathy in the abdomen and pelvis. The patient is being followed by urology, and is currently on GnRH agonist, and Xtandi. Most recent PSA in the EMR from 05/15 was undetectable Review of Systems Constitutional: Denies chills, Denies fever Eyes: denies blurred vision, denies pain Ears: deny: decreased hearing, ear discharge, earache, tinnitus Ears, nose, mouth and throat: Denies headache, Denies sore throat Cardiovascular: Denies chest pain, Denies shortness of breath Respiratory: Denies cough Gastrointestinal: Denies abdominal pain, Denies diarrhea, Denies nausea, Denies vomiting Genitourinary: Reports as per HPI Musculoskeletal: Reports as per HPI Musculoskeletal: right: foot pain Integumentary: Denies pruritus, Denies rash Neurological: Denies numbness, Denies weakness Psychiatric: Denies anxiety, Denies depression Endocrine: Denies fatigue, Denies weight change Hematologic/Lymphatic: Reports as per HPI Past Medical History Past Medical History: Diabetes Mellitus, Hyperlipidemia, Hypertension, Osteoarthritis (OA), Sleep Apnea/CPAP/BIPAP Additional Past Medical History / Comment(s): PROSTATE CANCER. CONCUSSION WITH WHEN HE WAS 9 YR HAD TWO HOLES DRILLED. History of Any Multi-Drug Resistant Organisms: None Reported Additional Past Surgical History / Comment(s): MINOR LACERATION Past Anesthesia/Blood Transfusion Reactions: Unable to Obtain Past Psychological History: No Psychological Hx Reported Smoking Status: Current every day smoker Past Alcohol Use History: None Reported Past Drug Use History: None Reported Medications and Allergies Home Medications Medication Instructions Recorded Confirmed Type Calcium Carbonate [Calcium] 600 mg PO DAILY@0600 01/06/20 01/22/22 History Enzalutamide [Xtandi] 160 mg PO DAILY@0600 01/06/20 01/22/22 History Glimepiride [Amaryl] 1 mg PO DAILY@0600 01/06/20 01/22/22 History Glucos Sul 2Kcl/MSM/Chond/C/Mn 2 tab PO DAILY@0600 01/06/20 01/22/22 History [Glucosamine Chondroitin Cap] Multivitamins, Thera [Multivitamin 1 tab PO DAILY@0600 01/06/20 01/22/22 History (formulary)] [place]-3 Fatty Acids/Fish Oil [Fish 2 cap PO DAILY@0600 01/06/20 01/22/22 History Oil 1,000 mg Softgel] Turmeric Root Extract [Turmeric] 500 mg PO DAILY@0600 01/06/20 01/22/22 History lisinopriL [Zestril] 2.5 mg PO DAILY@0600 01/06/20 01/22/22 History Atorvastatin Calcium [Lipitor] 40 mg PO DAILY@0600 01/22/22 01/22/22 History Insulin Glargine,Hum.rec.anlog 40 units SQ DAILY@1800 01/22/22 01/22/22 History [Lantus Solostar Pen] cefTRIAXone [Rocephin] 2,000 mg IVP Q24HR #28 each 01/25/22 Rx Allergies Allergy/AdvReac Type Severity Reaction Status Date / Time No Known Allergies Allergy Verified 01/22/22 14:30 Physical Exam Vitals: Vital Signs Temp Pulse Pulse Pulse Pulse Pulse Resp 01/25/22 15:15 98.1 F 61 16 01/25/22 15:00 71 74 68 75 01/25/22 13:48 97.6 F 77 18 01/25/22 07:20 97.6 F 59 L 16 01/25/22 03:03 97.5 F L 62 18 01/24/22 19:27 97.8 F 59 L 16 BP BP Pulse Ox Pulse Ox Pulse Ox Pulse Ox Pulse Ox 01/25/22 15:15 161/80 93 L 01/25/22 15:00 97 95 95 95 01/25/22 13:48 149/84 90 L 01/25/22 07:20 145/95 93 L 01/25/22 03:03 165/85 93 L 01/24/22 19:27 144/81 91 L Intake and Output 01/25/22 01/25/22 01/25/22 06:59 14:59 22:59 Intake Total 236 Balance 236 Intake: Oral 236 Other: # Voids 2 1 - Constitutional General appearance: no acute distress - EENT Eyes: EOMI, PERRLA ENT: hearing grossly normal, normal oropharynx - Neck Neck: no lymphadenopathy Thyroid: bilateral: normal size - Respiratory Respiratory: bilateral: CTA - Cardiovascular Rhythm: regular Heart sounds: normal: S1, S2 - Gastrointestinal General gastrointestinal: normal bowel sounds, soft - Integumentary Right distal foot bandaged - Neurologic Neurologic: CNII-XII intact - Musculoskeletal PICC site insertion in right upper extremity showing some old blood under the clear dressing. There does not appear to be any active ongoing bleeding Musculoskeletal: strength equal bilaterally - Psychiatric Psychiatric: A&O x's 3, appropriate affect Results CBC & Chem 7: 01/25/22 16:16 01/25/22 02:00 Labs: Abnormal Lab Results - Last 24 Hours (Table) 01/24/22 01/25/22 01/25/22 Range/Units 20:21 06:27 16:16 Plt Count 140 L (150-450) k/uL POC Glucose (mg/dL) 200 H 147 H (70-110) mg/dL 01/25/22 Range/Units 17:14 Plt Count (150-450) k/uL POC Glucose (mg/dL) 186 H (70-110) mg/dL Microbiology - Last 24 Hours (Table) 01/22/22 13:33 Blood Culture - Preliminary Blood No Growth after 72 hours 01/22/22 14:00 Blood Culture - Preliminary Blood No Growth after 72 hours 01/23/22 13:10 Anaerobic Culture - Preliminary Foot - Right 01/23/22 13:10 Gram Stain - Final Foot - Right Wound Culture - Final Comments: Foot x-ray report reviewed Chest x-ray: report reviewed CT scan - abdomen: report reviewed CT scan - pelvis: report reviewed Assessment and Plan (1) Bleeding at insertion site Narrative/Plan: The patient had been having some bleeding at the insertion site of his PICC line in the right upper extremity, which soaked through the first resting. However after change of dressing, and mild repositioning of the line, bleeding has stopped. - Based on the above, as well as the patient's history, at this time there appears to be no concerns for a bleeding diathesis. - The patient's hemoglobin is stable.. Counts are only mildly low at 140,000, which is well within a safe range. Check coags to rule out any coagulopathy. If this is also negative, further workup would not be required, unless there is recurrent unexplained bleeding. That case it is likely that the initial episode was a mild mechanical phenomenon Current Visit: Yes Status: Acute Code(s): L76.82 - OTH POSTPROCEDURAL COMPLICATIONS OF SKIN, SUBCU SNOMED Code(s): 089255876 (2) Osteomyelitis of toe of right foot Narrative/Plan: Defer to the admitting service and ID regarding ongoing treatment Current Visit: Yes Status: Acute Code(s): M86.9 - OSTEOMYELITIS, UNSPECIFIED SNOMED Code(s): 346839006 Plan: Patient appears to have a history of metastatic prostate cancer, and is currently following up with urology. Continue follow-up with them post dischar ge. Continue current medication regimen
[2022-01-25 21:13] LABS: Glucose,Whole Blood 161 mg/dL (70-110)
--- NOTE | 2022-01-26 02:37 | P.PN ---
Subjective This is a pleasant 71 years old male with past medical history of diabetes mellitus, hypertension, hyperlipidemia, osteoarthritis, sleep apnea Presents because of pain and swelling of the right fifth toe of 4 day duration, he states the pain is significant and severe. He denies any other symptoms, no chest pain or dyspnea or abdominal pain or vom iting or diarrhea. No urinary complaints. No fever. He smokes 3 packs per day and he was counseled to quit and he agrees and he agrees to the nicotine patch. He denies alcohol, he denies current illicit drugs he states that he used to abuse drugs but that was many years before. Vitas looks stable He has mild leukocytosis of 11,000, rest of CBC, BMP and liver enzymes are unremarkable Right foot x-ray showing radiographic findings suggestive of acute osteomyelitis of the distal fifth toe 01/23/2022 Patient still being treated for his right fifth toe osteomyelitis, his symptoms are located to this toe, he has some difficulty with limping and during walking but he walks by himself. Vascular surgery or the evaluated the patient, he is continued with conservative management currently ID team on the case and is covered with IV vancomycin and cefepime. This morning he was mildly hypoxic but with no respiratory distress, he is heavy smoker about 3 packs per day. Pulmonary team consulted who recommended a breathing treatment and follow-up outpatient for pulmonary function test and computed tomography scan of the chest. patient was found to be hypoxic at about 86% this morning, his oxygen level improved with 2 L oxygen via nasal cannula Chest x-ray showing possible mind lower lobe lung edema and/or development infiltrates. Progress study advised Wound culture obtained as well 01/24/2022 Patient breathing is stable, he is saturating 91 on room air. He continued with bronchodilator, I talked to the patient about the importance of follow-up with pulmonary service upon discharge for pulmonary function testing CAT scan of the chest and he agrees. Distal receiving IV antibiotics for his right fifth toe osteomyelitis, he is on cefepime and IV vancomycin, wound culture is pending for now, patient informed and he agrees with the treatment plan. Leukocytosis improved 01/25/2022 patient generally was doing well, he does not have any new symptoms. No pain at the toe infection site. Hemodynamically stable, labs reviewed. Patient wound culture was found and lysed and antibiotic was suggested by ID team and to ceftriaxone 2 g daily, PICC line was planned and placed later on today, however after the procedure patient developed bleeding from the PICC line, I talked to the bedside nurse and she checked the dressing until clear and it was soaked with blood , when she took the dressing off she told me it was oozing underneath the patient can be discharged today so we held the discharge and we checked CBC, PT and INR and to protect hematology consult to rule out bleeding diastases from IV lines. As per bed side nurse patient agrees to stay Also pulmonary team have signs off the case with recommendation for outpatient follow-up patient informed and he agrees. Objective - Vital Signs Vital signs: Vital Signs Temp 98.1 F 01/25/22 15:15 Pulse 61 01/25/22 15:15 Resp 16 01/25/22 15:15 BP 161/80 01/25/22 15:15 Pulse Ox 93 L 01/25/22 15:15 FiO2 Intake & Output 01/24/22 01/25/22 01/25/22 18:59 06:59 18:59 Intake Total 480 240 236 Balance 480 240 236 Intake: Oral 480 240 236 Other: # Voids 2 2 1 - Exam -GENERAL: The patient is alert and oriented x3, not in any acute distress. Well developed, well nourished. Obese HEENT: Pupils are round and equally reacting to light. EOMI. No scleral icterus. No conjunctival pallor. Normocephalic, atraumatic. No pharyngeal erythema. No thyromegaly. CARDIOVASCULAR: S1 and S2 present. No murmurs, rubs, or gallops. PULMONARY: Chest is clear to auscultation, no wheezing or crackles. ABDOMEN: Soft, nontender, nondistended, normoactive bowel sounds. No palpable organomegaly. MUSCULOSKELETAL: No joint swelling or deformity. -EXTREMITIES: No cyanosis, clubbing, or pedal edema. Right fifth toe in dressing NEUROLOGICAL: Gross neurological examination did not reveal any focal deficits. SKIN: No rashes. no petechiae. - Labs CBC & Chem 7: 01/25/22 16:16 01/25/22 02:00 Labs: Abnormal Lab Results - Last 24 Hours (Table) 01/24/22 01/24/22 01/25/22 Range/Units 17:28 20:21 06:27 Plt Count (150-450) k/uL POC Glucose (mg/dL) 116 H 200 H 147 H (70-110) mg/dL 01/25/22 Range/Units 16:16 Plt Count 140 L (150-450) k/uL POC Glucose (mg/dL) (70-110) mg/dL Microbiology - Last 24 Hours (Table) 01/22/22 13:33 Blood Culture - Preliminary Blood No Growth after 72 hours 01/22/22 14:00 Blood Culture - Preliminary Blood No Growth after 72 hours 01/23/22 13:10 Anaerobic Culture - Preliminary Foot - Right 01/23/22 13:10 Gram Stain - Final Foot - Right Wound Culture - Final Assessment and Plan Assessment: He didn't from the IV site, rule out bleeding diathesis Right fifth toe osteomyelitis Nicotine dependence mild acute COPD exacerbation Acute hypoxic respiratory failure Hypertension Diabetes mellitus Hyperlipidemia Obesity with BMI of 31.6 History of osteoarthritis History of sleep apnea Plan: Check hemoglobin and coagulation studies, consult hematology team. Vascular surgery consult, continue with conservative management Continue with antibiotic Pulmonary team consult, continue with oxygen and breathing treatment. Patient will need outpatient follow-up with pulmonary service for PFT and CAT scan of the chest per recommend Continue with insulin sliding scale Infectious disease consult Labs and medication were reviewed.. Continue same treatment. Continue with symptomatic treatment. Resume home medication. Monitor lytes and vitals. DVT and GI prophylaxis. Further recommendations as per clinical course of the patient DVT prophylaxis: Subcutaneous heparin GI Prophylaxis: Pepcid PT/OT: Pending Prognosis is guarded
[2022-01-26] MEDS: INSULIN ASPART (NovoLOG) 100 UNIT/ML VIAL SQ SCH ×2 (05:19→14:26)
[2022-01-26 05:21] LABS: Glucose,Whole Blood 160 mg/dL (70-110)
[2022-01-26] MEDS: CALCIUM CARBONATE 500 MG CHEWABLE PO SCH (06:02)
[2022-01-26] MEDS: GLIMEPIRIDE 1 MG TAB PO SCH (06:02)
[2022-01-26] MEDS: ATORVASTATIN 40 MG TAB PO SCH (06:02)
[2022-01-26] MEDS: INSULIN DETEMIR (LEVEMIR) 100 UNIT/ML SYR SQ SCH (06:03)
[2022-01-26 08:12] VITALS: BP 155/93; PULSE 62; RESP 16; TEMP 98.1
[2022-01-26] MEDS ORDERED: VANCOMYCIN TROUGH DUE 1 EACH MISC MISCELLANE ONE (09:00)
[2022-01-26] MEDS: COLLAGENASE 250 UNIT/GM OINTMENT 30 GM TUBE TOPICAL SCH (09:13)
[2022-01-26] MEDS: FAMOTIDINE 20 MG TAB PO SCH (09:14)
[2022-01-26] MEDS: HEPARIN SODIUM,PORCINE/PF 5,000 UNIT/0.5 ML SYRINGE SQ SCH (09:14)
[2022-01-26] MEDS: NICOTINE 21MG/24HR PATCH TRANSDERM SCH (09:14)
--- NOTE | 2022-01-26 11:42 | P.PN ---
Subjective Progress Note Date: 01/26/22 This is a pleasant 71 years old male with past medical history of diabetes mellitus, hypertension, hyperlipidemia, osteoarthritis, sleep apnea Presents because of pain and swelling of the right fifth toe of 4 day duration, he states the pain is significant and severe. He denies any other symptoms, no chest pain or dyspnea or abdominal pain or vomiting or diarrhea. No urinary complaints. No fever. He smokes 3 packs per day and he was counseled to quit and he agrees and he agrees to the nicotine patch. He denies alcohol, he denies current illicit drugs he states that he used to abuse drugs but that was many years before. Vitas looks stable He has mild leukocytosis of 11,000, rest of CBC, BMP and liver enzymes are unremarkable Right foot x-ray showing radiographic findings suggestive of acute osteomyelitis of the distal fifth toe 01/23/2022 Patient still being treated for his right fifth toe osteomyelitis, his symptoms are located to this toe, he has some difficulty with limping and during walking but he walks by himself. Vascular surgery or the evaluated the patient, he is continued with conservative management currently ID team on the case and is covered with IV vancomycin and cefepime. This morning he was mildly hypoxic but with no respiratory distress, he is heavy smoker about 3 packs per day. Pulmonary team consulted who recommended a breathing treatment and follow-up outpatient for pulmonary function test and computed tomography scan of the chest. patient was found to be hypoxic at about 86% this morning, his oxygen level improved with 2 L oxygen via nasal cannula Chest x-ray showing possible mind lower lobe lung edema and/or development infiltrates. Progress study advised Wound culture obtained as well 01/24/2022 Patient breathing is stable, he is saturating 91 on room air. He continued with bronchodilator, I talked to the patient about the importance of follow-up with pulmonary service upon discharge for pulmonary function testing CAT scan of the chest and he agrees. Distal receiving IV antibiotics for his right fifth toe osteomyelitis, he is on cefepime and IV vancomycin, wound culture is pending for now, patient informed and he agrees with the treatment plan. Leukocytosis improved 01/25/2022 patient generally was doing well, he does not have any new symptoms. No pain at the toe infection site. Hemodynamically stable, labs reviewed. Patient wound culture was found and lysed and antibiotic was suggested by ID team and to ceftriaxone 2 g daily, PICC line was planned and placed later on today, however after the procedure patient developed bleeding from the PICC line, I talked to the bedside nurse and she checked the dressing until clear and it was soaked with blood , when she took the dressing off she told me it was oozing underneath the patient can be discharged today so we held the discharge and we checked CBC, PT and INR and to protect hematology consult to rule out bleeding diastases from IV lines. As per bed side nurse patient agrees to stay Also pulmonary team have signs off the case with recommendation for outpatient follow-up patient informed and he agrees. 01/26. Patient seen and examined. No further episodes of bleeding from the PICC line site. Denies any chest pain shortness of breath. Vital signs stable. REVIEW OF SYSTEMS: CONSTITUTIONAL: No fever, no malaise,. CARDIOVASCULAR: No chest pain, no palpitations, no syncope. PULMONARY: No shortness of breath, no cough, GASTROINTESTINAL: No diarrhea, no nausea, no vomiting, no abdominal pain. NEUROLOGICAL: No headaches, no weakness, PHYSICAL EXAMINATION: GENERAL: The patient is alert and oriented x3, not in any acute distress. Well developed, well nourished. HEENT: Pupils are round and equally reacting to light. EOMI. No scleral icterus. No conjunctival pallor. Normocephalic, atraumatic. No pharyngeal erythema. No thyromegaly. CARDIOVASCULAR: S1 and S2 present. No murmurs, rubs, or gallops. PULMONARY: Chest is clear to auscultation, no wheezing or crackles. ABDOMEN: Soft, nontender, nondistended, normoactive bowel sounds. No palpable organomegaly. MUSCULOSKELETAL: No joint swelling or deformity. EXTREMITIES: Right fifth toe bandaged NEUROLOGICAL: Gross neurological examination did not reveal any focal deficits. SKIN: No rashes. Assessment and plan Assessment: Bleeding from IV site, Right fifth toe osteomyelitis Nicotine dependence mild acute COPD exacerbation Acute hypoxic respiratory failure Hypertension Diabetes mellitus Hyperlipidemia Obesity with BMI of 31.6 History of osteoarthritis History of sleep apnea Plan: Monitor CBC Continue IV Rocephin Pulmonary team consult, continue with oxygen and breathing treatment. Patient will need outpatient follow-up with pulmonary service for PFT and CAT scan of the chest per recommend Continue with insulin sliding scale Follow-up in ID recs Objective - Vital Signs Vital signs: Vital Signs Temp 98.1 F 01/26/22 07:25 Pulse 62 01/26/22 08:00 Resp 16 01/26/22 08:00 BP 155/93 01/26/22 07:25 Pulse Ox 94 L 01/26/22 07:25 FiO2 Intake & Output 01/25/22 01/26/22 01/26/22 18:59 06:59 18:59 Intake Total 236 Balance 236 Intake: Oral 236 Other: # Voids 1 2 - Labs CBC & Chem 7: 01/25/22 16:16 01/25/22 02:00 Labs: Abnormal Lab Results - Last 24 Hours (Table) 01/25/22 01/25/22 01/25/22 Range/Units 16:16 17:14 21:10 Plt Count 140 L (150-450) k/uL POC Glucose (mg/dL) 186 H 161 H (70-110) mg/dL 01/26/22 Range/Units 05:19 Plt Count (150-450) k/uL POC Glucose (mg/dL) 160 H (70-110) mg/dL Microbiology - Last 24 Hours (Table) 01/22/22 13:33 Blood Culture - Preliminary Blood No Growth after 72 hours 01/22/22 14:00 Blood Culture - Preliminary Blood No Growth after 72 hours 01/23/22 13:10 Anaerobic Culture - Preliminary Foot - Right 01/23/22 13:10 Gram Stain - Final Foot - Right Wound Culture - Final
[2022-01-26 12:24] LABS: Glucose,Whole Blood 132 mg/dL (70-110)
== END 2022-01-26 15:55 | disposition home health service (06) | DRG 637 ==
LOC: EC 10:38 → 4SSUR 14:13 → 6NMEDSUR 19:01
PROVIDERS: ADMIT Internal Medicine; ATTEND Internal Medicine
PROC: B5181ZA Fluoroscopy of Superior Vena Cava using Low Osmolar Contrast, Guidance (ICD-10-PCS; 2022-01-25)
PROC: B548ZZA Ultrasonography of Superior Vena Cava, Guidance (ICD-10-PCS; 2022-01-25)
PROC: 02HV33Z Insertion of Infusion Device into Superior Vena Cava, Percutaneous Approach (ICD-10-PCS; principal; 2022-01-25 13:30)
DX: E11.69 Type 2 diabetes mellitus with other specified complication (principal); J96.01 Acute respiratory failure with hypoxia; M86.171 Other acute osteomyelitis, right ankle and foot; T82.838A Hemorrhage due to vascular prosthetic devices, implants and grafts, initial encounter; J44.1 Chronic obstructive pulmonary disease with (acute) exacerbation; C79.51 Secondary malignant neoplasm of bone; C79.89 Secondary malignant neoplasm of other specified sites; E11.621 Type 2 diabetes mellitus with foot ulcer; E11.51 Type 2 diabetes mellitus with diabetic peripheral angiopathy without gangrene; Z79.4 Long term (current) use of insulin; Z79.899 Other long term (current) drug therapy; R00.1 Bradycardia, unspecified; I10 Essential (primary) hypertension; E78.5 Hyperlipidemia, unspecified; L84 Corns and callosities; I71.43 Infrarenal abdominal aortic aneurysm, without rupture; C61 Malignant neoplasm of prostate; Z68.31 Body mass index [BMI] 31.0-31.9, adult; Z71.6 Tobacco abuse counseling; D72.829 Elevated white blood cell count, unspecified; L97.519 Non-pressure chronic ulcer of other part of right foot with unspecified severity; N40.0 Benign prostatic hyperplasia without lower urinary tract symptoms; E66.9 Obesity, unspecified; I70.203 Unspecified atherosclerosis of native arteries of extremities, bilateral legs; G47.33 Obstructive sleep apnea (adult) (pediatric); F17.210 Nicotine dependence, cigarettes, uncomplicated; Z79.84 Long term (current) use of oral hypoglycemic drugs; Z85.46 Personal history of malignant neoplasm of prostate; Z87.820 Personal history of traumatic brain injury; Z79.2 Long term (current) use of antibiotics; Z87.828 Personal history of other (healed) physical injury and trauma; Y84.8 Other medical procedures as the cause of abnormal reaction of the patient, or of later complication, without mention of misadventure at the time of the procedure
CPT/HCPCS: 36415; 36573; 71045; 80048; 80053; 80202; 82565; 83036; 83605; 85025; 85384; 85610; 85652; 85730; 86140; 87040; 87070; 87075; 87205; 96365; 96367; 96368; 96375; 99285